=== PATIENT | female | born 1945 | race Caucasian/White ===

== ENCOUNTER 2016-07-21 07:30 | Inpatient (IN) | payer MEDICARE, OTHER ==
[2016-07-23 11:42] VITALS: BMI 32.0
--- NOTE | 2016-07-27 17:48 | HP ---
DATE OF ADMISSION: Iesha Sinha is a 71-year-old patient seen with progressive right hip pain. After having treatment options discussed, she elected to proceed with direct anterior right total hip arthroplasty. Consent regarding procedure was obtained. Medical clearance was provided by Dr. Rin Montanez's office. Past medical history is hypothyroidism, depression, hypertension. PAST SURGICAL HISTORY: 1. Carpal tunnel release. 2. Cataract surgery. 3. Wrist surgery. Daily medications: 1. Lasix. 2. Tiffin. 3. Synthroid. ALLERGIES: VIOXX, DARVON, SURGICAL TAPE. SOCIAL HISTORY: Patient denies current tobacco use. Physical evaluation of the right hip there is a limited range of motion with significant pain, diffuse tenderness about the hip girdle, diffuse weakness about the hip girdle, positive hip impingement sign. Straight-leg raise is negative. Distal neurovascular exam is intact. Radiographs of the right hip revealed moderate/severe osteoarthritic changes osteophyte formation. IMPRESSION: Symptomatic right hip osteoarthritis. PLAN: Direct anterior right total hip arthroplasty.
[2016-07-28] MEDS ORDERED: TRANEXAMIC ACID 1,000 MG in SODIUM CHLORIDE 0.9% 100 ML IVPB ONE ×4 (05:00)
[2016-07-28] MEDS ORDERED: ceFAZolin 2 GM in SODIUM CHLORIDE 0.9% 100 ML IVPB ONE (05:00)
[2016-07-28] MEDS ORDERED: ACETAMINOPHEN TAB 500 MG TAB PO ONE (05:00)
[2016-07-28] MEDS ORDERED: DEXAMETHASONE SOD PHOSPHATE 10 MG/ML 1 ML VIAL IV ONE (05:21)
[2016-07-28] MEDS ORDERED: ONDANSETRON 4 MG/2 ML VIAL IVP ONE (05:21)
[2016-07-28] MEDS ORDERED: MIDAZOLAM 2 MG/2 ML VIAL IV PRN (05:21)
[2016-07-28] MEDS ORDERED: LIDOCAINE 1% 20 ML VIAL (10MG/ML) FOR IV START INTRADERMA ONE (13:58)
[2016-07-28] MEDS: LACTATED RINGERS 1,000 ML IV SCH (13:58)
[2016-07-28 14:01] LABS: Glucose,Whole Blood 86 mg/dL (75-99)
[2016-07-28] MEDS ORDERED: ROPIVACAINE 246.25 MG, EPINEPHrine 0.5 MG, KETOROLAC 30 MG, cloNIDine HCL/PF 80 MCG, WA... MISCELLANE ONE ×5 (16:13)
[2016-07-28] MEDS ORDERED: fentaNYL (PF) 50 MCG/ML 2 ML AMP ONE (16:55)
[2016-07-28] MEDS ORDERED: PROPOFOL 10 MG/ML 20 ML VIAL IV ONE (16:55)
[2016-07-28] MEDS ORDERED: GLYCOPYRROLATE 0.2 MG/ML 2 ML VIAL ONE (16:55)
[2016-07-28] MEDS ORDERED: TRANEXAMIC ACID 1,000 MG/10 ML VIAL ONE (16:55)
[2016-07-28] MEDS ORDERED: SODIUM CHLORIDE 0.9% 100 ML BAG ONE (16:55)
[2016-07-28] MEDS ORDERED: MIDAZOLAM 2 MG/2 ML VIAL ONE (16:55)
[2016-07-28] MEDS ORDERED: ceFAZolin 3,000 MG in SODIUM CHLORIDE 0.9% IRRIGATIO 3,000 ML IRRIGATION ONE (17:37)
[2016-07-28] MEDS ORDERED: LACTATED RINGERS 1,000 ML IV ONE (17:49)
--- NOTE | 2016-07-28 19:03 | P.OP ---
Date of Procedure: 07/28/16 Preoperative Diagnosis: Right hip osteoarthritis Postoperative Diagnosis: Right hip osteoarthritis Procedure(s) Performed: Direct anterior right total hip arthroplasty Implants: 1. Depuy Corail size 11 standard with collar cementless femoral stem 2. Depuy pinnacle cementless acetabular shell size 52 3. Depuy polyethylene acetabular liner 52 OD 36 ID 4. Biolox ceramic femoral head 36 mm +1. 5 Anesthesia: local, spinal Surgeon: Sushant Arboleda Body Trimmer Upholsterer #1: Jules Foy Estimated Blood Loss (ml): 150 Pathology: other (Femoral head) Condition: stable Disposition: PACU Indications for Procedure: 71-year-old patient seen with symptomatic right hip osteoarthritis. After treatment options were discussed, she elected to proceed with right total hip arthroplasty. Operative Findings: See description of procedure Description of Procedure: The patient was taken to the operative suite. Patient underwent a spinal anesthetic by the department of anesthesia. Patient was then transferred to the [place] table. Patient was given preoperative IV antibiotics and TXA. Both lower extremities were placed in standard leg spars. The hip was then prepped and draped in the normal sterile orthopedic fashion. A standard anterior incision was made beginning 3 cm lateral and 1 cm distal to the ASIS extending 10 cm. Dissection was then carried down through the subcutaneous soft tissues down to the fascia overlying the tensor fascia ron. An incision was now made through the fascia. Careful dissection was taken down exposing the tensor fascia ron muscle. A Cobra retractor was now placed along the medial femoral neck and a second one along the lateral femoral neck. The venous circumflex vessels were now identified, cauterized and clipped. We identified the anterior hip capsule. An incision was made through the hip capsule along the lateral border. Tag sutures were then placed along the anterior capsule and lateral capsule. We then performed a capsulotomy. Retractors were now placed around the femoral neck itself. A Cobra retractor was now placed along the anterior acetabulum. Good exposure was now noted of the femoral head/neck complex. Residual labrum was debrided out. We placed the extremity into 3 turns of fine traction. We were then able to introduce a skid in between the femoral head and acetabulum. A placed a awl into the femoral head. We took 2 turns of traction off the extremity. Rotation was now released. The femoral head was then dislocated without difficulty. Additional releasing was performed of the capsule. The head was then reduced. All traction was released. A femoral neck cut was now made with a sagittal saw. It was completed with an osteotome at the lateral neck area. The femoral head was now removed without difficulty. The extremity was now rotated to 60 of external rotation. It was locked in position. Residual labrum was now debrided out. Serial reaming was performed of the acetabulum. Once we reached the appropriate size and a trial was position and fit nicely. The trial was removed and the wound was irrigated with pulse lavage mechanical irrigation. The appropriate size was now chosen opened and made available. It was introduced into the acetabulum without difficulty. The C-arm/fluoroscopy was now brought into the operative field. We made sure we had a true AP pelvic view. We now under direct C-arm/fluoroscopy introduced into the acetabular component with appropriate version and inclination. It was well seated and stable. I did insert one single screw to augment the fixation. The C-arm was pulled back. An appropriate liner was introduced and clicked into position. It was felt to be stable. At this point retractors were removed. The extremity was now placed into 120 external rotation with no traction. The leg was now dropped to the ground and adducted. Appropriate retractors were now positioned along the proximal femur. We also placed our femoral look into position. Additional capsular releasing was performed to gain access to the proximal femur. We now used a box osteotome. A canal finder was now utilized. Serial broaching was now performed until we reached the appropriate size with good overall rotational stability. Appropriate calcar planing was performed. A trial head/neck was placed into position. The hip was now reduced. The C-arm /fluoroscopy was brought back into the operative field. A spot film was obtained of the nonoperative hip. A spot film was obtained of the trial components. Overlays were performed, we noted good overall alignment and positioning for determining leg length. The C-arm/fluoroscopy was pulled back. Retractors were repositioned and the hip was dislocated. The leg was again taken down to the ground and adducted. Appropriate retractors were repositioned as well as the femoral hook. All trial components were removed. The femoral implant was opened along with the femoral head. The wound was irrigated with pulse lavage mechanical irrigation. The soft tissues were infiltrated local analgesic. The femoral implant was introduced with good purchase and fixation noted. The femoral head was introduced with good positioning and fixation noted. His was confirmed via fluoroscopy and a spot image was obtained to capture/document the positioning of the components. Retractors were now removed. The hip was now reduced. There appeared be good positioning of the hip. Bipolar cautery had been utilized intermittently through the procedure for hemostasis. The wound was irrigated copiously with pulse lavage mechanical irrigation. The fascia was repaired with Vicryl suture. The subcutaneous soft tissues were repaired in layers with Vicryl suture. The skin was approximated with pernio/Dermabond. Sterile dressings were applied. Patient was then awakened, transferred to a bed and taken to recovery in stable condition. Dimitri GIBBS assisted with the procedure.
[2016-07-28] MEDS ORDERED: HYDROmorphone 1 MG/ML 1 ML SYRINGE IVP PRN ×2 (19:04)
[2016-07-28] MEDS ORDERED: HYDROcodone/APAP 7.5-325MG 1 EACH TAB PO PRN (19:04)
[2016-07-28] MEDS ORDERED: ONDANSETRON 4 MG/2 ML VIAL IVP PRN (19:04)
[2016-07-28] MEDS ORDERED: NALOXONE 0.4 MG/ML 1 ML VIAL IV PRN (19:04)
[2016-07-28 19:34] LABS: Glucose,Whole Blood 115 mg/dL (75-99)
[2016-07-28] MEDS: HYDROmorphone 1 MG/ML 1 ML SYRINGE IVP PRN ×2 (19:39→19:47)
[2016-07-28] MEDS: hydrOXYzine PAMOATE 25 MG CAP PO PRN (21:29)
[2016-07-28] MEDS: SENNOSIDES-DOCUSATE SODIUM 1 EACH TAB PO SCH (21:29)
[2016-07-28] MEDS: HYDROcodone/APAP 7.5-325MG 1 EACH TAB PO PRN (21:29)
[2016-07-28] MEDS: SODIUM CHLORIDE 0.9% 1,000 ML IV SCH (21:30)
[2016-07-29] MEDS: traMADol 50 MG TAB PO SCH ×4 (00:05→17:53)
[2016-07-29] MEDS: HYDROmorphone 1 MG/ML 1 ML SYRINGE IVP PRN ×2 (00:05→03:46)
[2016-07-29] MEDS: ceFAZolin 2 GM in SODIUM CHLORIDE 0.9% 100 ML IVPB SCH ×2 (00:06→08:52)
[2016-07-29] MEDS: HYDROcodone/APAP 7.5-325MG 1 EACH TAB PO PRN ×3 (06:20→20:34)
[2016-07-29] MEDS: hydrOXYzine PAMOATE 25 MG CAP PO PRN ×2 (06:21→20:34)
--- NOTE | 2016-07-29 07:55 | XR ---
EXAMINATION TYPE: XR Hip Limited RT DATE OF EXAM: 07/28/2016 COMPARISON: NONE HISTORY: Postop TECHNIQUE: One view submitted. FINDINGS: There is a prosthetic hip in near anatomic alignment. There is soft tissue edema and emphysema. Tech nique limits assessment for surgical drain. IMPRESSION: 1. Surgical change appears in near-anatomic alignment.
--- NOTE | 2016-07-29 07:56 | FL ---
EXAMINATION TYPE: FL guidance operating room DATE OF EXAM: 07/28/2016 HISTORY: Fluoroscopy time 6 seconds of fluoroscopy provided. IMPRESSION: 1. Fluoroscopy time.
[2016-07-29] MEDS: ENOXAPARIN 40 MG/0.4 ML SYRINGE SQ SCH (07:58)
[2016-07-29] MEDS: FAMOTIDINE 20 MG TAB PO SCH (07:59)
[2016-07-29] MEDS: MULTIVITAMINS, THERA 1 EACH TAB PO SCH (07:59)
[2016-07-29 08:04] LABS: Basophils % (A) 0 %; CH 28.4; CHCM 32.3; Eosinophils % (A) 0 %; HCT 34.3 % (34.0-46.0); HDW 2.34; Luc # (Auto) 0.08; Luc % (Auto) 1; Lymphocytes % (A) 7 %; MCH 28.4 pg (25.0-35.0); MCHC 32.1 g/dL (31.0-37.0); MCV 88.3 fL (80.0-100.0); Mean Platelet Volume 7.5; Monocytes # (A) 0.8 k/uL (0-1.0); Monocytes % (A) 6 %; Neutrophils # (A) 11.7 k/uL (1.3-7.7); Neutrophils % (A) 86 %; RBC 3.89 m/uL (3.80-5.40); RDW 13.7 % (11.5-15.5); WBC 13.5 k/uL (3.8-10.6); WBC (Perox) 13.72
[2016-07-29] MEDS: LACTATED RINGERS 1,000 ML IV SCH (11:37)
--- NOTE | 2016-07-29 12:23 | P.PN ---
Subjective Principal diagnosis: Status post right total hip arthroplasty Patient is seen today resting in her hospital bed, she appears comfortable. Her pain is controlled with current medications. She has ambulated with therapy. She denies any lightheadedness, chest pain, shortness of breath, abdominal discomfort. Objective - Vital Signs Vital signs: Vital Signs Temp 98.9 F 07/29/16 07:00 Pulse 64 07/29/16 07:00 Resp 16 07/29/16 07:00 BP 117/54 07/29/16 07:00 Pulse Ox 95 07/29/16 07:00 Intake & Output 07/28/16 07/29/16 07/29/16 18:59 06:59 18:59 Intake Total 1601 1150 Output Total 500 200 100 Balance 1101 950 -100 Intake: IV 1601 100 Intake, IV Titration 500 Amount Sodium Chloride 0.9% 1, 500 000 ml @ 50 mls/hr IV . Q20H [facility] Rx#:[id number] Oral 550 Output: Urine 350 200 100 Uretheral (Sanders) 100 Estimated Blood Loss 150 Other: Voiding Method Indwelling Catheter - Exam Right lower extremity: Incision is clean, dry and intact. Stitches are all in good position. Minimal soft tissue swelling present around the anterior lateral aspect of the hip. Calf is soft, no tenderness with palpation. Plantar flexion, dorsiflexion, EHL , FHL are intact. Her sensory exam to light touch throughout the extremity is intact, dorsalis pedis pulses 2+. - Labs CBC & Chem 7: 07/29/16 07:00 Labs: Abnormal Lab Results - Last 24 Hours (Table) 07/28/16 07/29/16 Range/Units 19:32 07:00 WBC 13.5 H (3.8-10.6) k/uL Hgb 11.0 L (11.4-16.0) gm/dL Neutrophils # 11.7 H (1.3-7.7) k/uL POC Glucose (mg/dL) 115 H (75-99) mg/dL Assessment and Plan Plan: Assessment: 1. Postop day #1 status post right total hip arthroplasty Plan: 1. Pain control, will continue use of oral medication 2. Continue with physical therapy 3. Daily dressing changes/ice the hip 4. GI and DVT prophylaxis, continue Lovenox 5. Encourage incentive spirometer 6. Medical recommendations 7. Discharge planning: Patient will be likely discharged home tomorrow Time with Patient: Less than 30
--- NOTE | 2016-07-29 14:17 | P.CONS ---
History of Present Illness - Reason for Consult Consult date: 07/29/16 Medical management - Chief Complaint Right hip osteoarthritis - History of Present Illness This is a 71-year-old female with past medical history noted below significant for severe osteoarthritis of the right hip that was admitted to the hospital for elective total right hip arthroplasty. Patient is postoperative day #1. She tolerated the procedure well. Estimated blood loss 150 mL. She is doing fairly well today and does not have any specific concerns or complaints. I was asked to see her for medical management. Review of Systems Review of system: 14 points review of systems were obtained and were negative except to what were mentioned in the HPI. Past Medical History Past Medical History: Fibromyalgia, GERD/Reflux, Osteoarthritis (OA), Sleep Apnea/CPAP/BIPAP, Thyroid Disorder Additional Past Medical History / Comment(s): STATES FREQUENT LOWER EXTREMITY EDEMA,HIATAL HERNIA, DIVERTICULITIS,low b/p and heart rate at times,no cpap at this time,IBS,hypoglycemia History of Any Multi-Drug Resistant Organisms: None Reported Past Surgical History: Cholecystectomy, Hysterectomy, Joint Replacement, Orthopedic Surgery Additional Past Surgical History / Comment(s): ZENAIDA HAND SX, ZENAIDA INDEX FINGER WITH JEREMIAH, LEFT BIG TOE METAL, ZENAIDA CATARACTS, ZENAIDA KNEE REPLACEMENT,Laser proc rt eye Past Anesthesia/Blood Transfusion Reactions: Motion Sickness, Postoperative Nausea & Vomiting (PONV) Additional Past Anesthesia/Blood Transfusion Reaction / Comm: no hx blood transfusion Past Psychological History: Depression Smoking Status: Former smoker Past Alcohol Use History: None Reported Additional Past Alcohol Use History / Comment(s): quit smoking 2008,smoked approx 20yrs on and off <1ppd Past Drug Use History: None Reported - Past Family History Father Family Medical History: Cancer Additional Family Medical History / Comment(s): LYMPHOMA, COLON Mother Family Medical History: Cancer Additional Family Medical History / Comment(s): SKIN Medications and Allergies Home Medications Medication Instructions Recorded Confirmed Type Furosemide [Lasix] 40 mg PO DAILY PRN 01/17/14 07/28/16 History HYDROcodone/APAP 7.5-325MG [[place] 1 tab PO BID PRN 01/17/14 07/28/16 History 7.5-325] Pantoprazole Sodium [Protonix] 40 mg PO HS 01/17/14 07/28/16 History Naproxen Sodium [Aleve] 220 mg PO DAILY PRN 07/23/16 07/28/16 History tiZANidine [Zanaflex] 4 mg PO BID PRN 07/23/16 07/28/16 History traZODone HCL 200 mg PO HS 07/23/16 07/28/16 History Levothyroxine Sodium [Synthroid] 100 mcg PO DAILY 07/28/16 07/28/16 History Allergies Allergy/AdvReac Type Severity Reaction Status Date / Time adhesive Allergy Rash/Hives Verified 07/28/16 13:51 rofecoxib [From Vioxx] Allergy Rash/Hives Verified 07/28/16 13:51 Sulfa (Sulfonamide Allergy dizziness Verified 07/28/16 13:51 Antibiotics) propoxyphene HCl AdvReac Nausea & Verified 07/28/16 13:51 [From Darvon] Vomiting Physical Exam Vitals: Vital Signs Temp Pulse Resp BP Pulse Ox 07/29/16 07:00 98.9 F 64 16 117/54 95 07/29/16 01:35 97.9 F 66 16 113/54 93 L 07/28/16 20:00 97.9 F 51 L 16 143/63 100 07/28/16 19:55 55 L 16 159/66 98 07/28/16 19:40 54 L 16 152/68 98 07/28/16 19:25 54 L 16 149/75 96 07/28/16 19:10 96.8 F L 77 18 130/67 97 Intake and Output 07/28/16 07/29/16 07/29/16 22:59 06:59 14:59 Intake Total 1901 700 Output Total 500 200 100 Balance 1401 500 -100 Intake: IV 1551 Intake, IV Titration 100 400 Amount Sodium Chloride 0.9% 1, 100 400 000 ml @ 50 mls/hr IV . Q20H [facility] Rx#:[id number] Oral 250 300 Output: Urine 350 200 100 Uretheral (Sanders) 100 Estimated Blood Loss 150 Other: Voiding Method Indwelling Catheter General: The patient is awake and alert, in no distress Eye: there is normal conjunctiva bilaterally. Neck: The neck is supple, there is no JVD. Cardiovascular: Normal S1-S2, no S3-S4, no murmurs. Respiratory: Lungs clear to auscultation bilaterally Gastrointestinal: Abdomen is soft, nontender Musculoskeletal: There is no pedal edema. Neurological:. Speech is normal. Skin: Skin is warm and dry Results CBC & Chem 7: 07/29/16 07:00 Labs: Abnormal Lab Results - Last 24 Hours (Table) 07/28/16 07/29/16 Range/Units 19:32 07:00 WBC 13.5 H (3.8-10.6) k/uL Hgb 11.0 L (11.4-16.0) gm/dL Neutrophils # 11.7 H (1.3-7.7) k/uL POC Glucose (mg/dL) 115 H (75-99) mg/dL Assessment and Plan Plan: 1. Postoperative day #1 status post total right hip arthroplasty 2. DVT prophylaxis with subcu heparin per orthopedic protocol 3. Leukocytosis most likely reactive with no evidence of infection 4. Hypothyroidism maintained on Synthroid 5. Chronic insomnia Today, I reviewed her medication list lab work results. Continue current regimen. Repeat lab work in the morning. I will continue to follow up on her closely. Thank you very much for your consultation.
[2016-07-29] MEDS: LEVOTHYROXINE 100 MCG TAB PO SCH (16:52)
[2016-07-29] MEDS: SODIUM CHLORIDE 0.9% 1,000 ML IV SCH (16:52)
[2016-07-29] MEDS: PANTOPRAZOLE 40 MG TABLET PO SCH (20:19)
[2016-07-29] MEDS: SENNOSIDES-DOCUSATE SODIUM 1 EACH TAB PO SCH (20:19)
[2016-07-30] MEDS: traMADol 50 MG TAB PO SCH ×5 (00:11→21:02)
[2016-07-30] MEDS: traZODone HCL 100 MG TAB PO SCH ×2 (00:12→21:02)
[2016-07-30] MEDS: hydrOXYzine PAMOATE 25 MG CAP PO PRN ×2 (02:01→07:55)
[2016-07-30] MEDS: HYDROcodone/APAP 7.5-325MG 1 EACH TAB PO PRN ×3 (02:01→14:31)
[2016-07-30] MEDS: LEVOTHYROXINE 100 MCG TAB PO SCH (05:07)
[2016-07-30 07:31] LABS: Anion Gap 7 mmol/L; Blood Urea Nitrogen 15 mg/dL (7-17); Calcium 8.5 mg/dL (8.4-10.2); Carbon Dioxide 25 mmol/L (22-30); Chloride 106 mmol/L (98-107); Glucose 112 mg/dL (74-99); Non-African American GFR(MDRD) >60 (>60 ml/min/1.73 sqM); Potassium 4.1 mmol/L (3.5-5.1); Sodium 138 mmol/L (137-145)
[2016-07-30] MEDS: ENOXAPARIN 40 MG/0.4 ML SYRINGE SQ SCH (07:53)
[2016-07-30] MEDS: FAMOTIDINE 20 MG TAB PO SCH (07:53)
--- NOTE | 2016-07-30 10:51 | P.PN ---
Subjective Principal diagnosis: Status post right total hip arthroplasty Patient is seen today resting in her hospital bed, she appears comfortable. Patient notes increasing pain in the right hip and thigh region. She ambulated very minimally this morning. She denies any lightheadedness, chest pain, shortness of breath, abdominal discomfort. Objective - Vital Signs Vital signs: Vital Signs Temp 97.6 F 07/30/16 07:00 Pulse 79 07/30/16 07:00 Resp 17 07/30/16 07:00 BP 119/58 07/30/16 07:00 Pulse Ox 94 L 07/30/16 07:00 Intake & Output 07/29/16 07/30/16 07/30/16 18:59 06:59 18:59 Intake Total 575 240 Output Total 100 Balance -100 575 240 Intake: Intake, IV Titration 175 Amount Sodium Chloride 0.9% 1, 175 000 ml @ 50 mls/hr IV . Q20H [facility] Rx#:[id number] Oral 400 240 Output: Urine 100 Uretheral (Sanders) 100 Other: Voiding Method Toilet Toilet # Voids 3 3 - Exam Right lower extremity: Incision is clean, dry and intact. Stitches are all in good position. Minimal soft tissue swelling present around the anterior lateral aspect of the hip. Calf is soft, no tenderness with palpation. Plantar flexion, dorsiflexion, EHL , FHL are intact. Her sensory exam to light touch throughout the extremity is intact, dorsalis pedis pulses 2+. - Labs CBC & Chem 7: 07/29/16 07:00 07/30/16 06:55 Labs: Abnormal Lab Results - Last 24 Hours (Table) 07/30/16 Range/Units 06:55 Glucose 112 H (74-99) mg/dL Assessment and Plan Plan: Assessment: 1. Postop day #2 status post right total hip arthroplasty Plan: 1. Pain control, will continue use of oral medication 2. Continue with physical therapy 3. Daily dressing changes/ice the hip 4. GI and DVT prophylaxis, continue Lovenox 5. Encourage incentive spirometer 6. Medical recommendations 7. Discharge planning: Possible discharge home today, likely tomorrow Time with Patient: Less than 30
--- NOTE | 2016-07-30 10:53 | P.DS ---
Providers Date of admission: 07/28/16 13:06 Expected date of discharge: 07/31/16 Attending physician: Sushant Arboleda Consults: 07/28/16 19:04 Consult Physician Routine Consulting Provider: Liz Castillo Consult Reason/Comments: Medical management Do you want consulting provider notified?: Yes Primary care physician: Rin Montanez Hospital Course: Date of admission: 07/28/2016 Date of discharge: 07/31/2016 Admission diagnosis: Status post right total hip arthroplasty Discharge diagnosis: Same Attending physician: Dr. Arboleda Surgical procedures: Right total hip arthroplasty Brief history: Patient is a 71-year-old female with a history of progressive primary right hip osteoarthritis. At this point patient has failed conservative treatment measures and has opted to proceed with a elective right total hip arthroplasty. Hospital course: Details of patient's surgery can be found in operative report. Patient tolerated the procedure well and was subsequently transported to orthopedic floor. Patient's orthopeidc and medical care was provided daily. Patient had daily laboratory tests performed for evaluation of overall blood counts. Patient had daily physical therapy to include strengthening range of motion as well as education with walker ambulation. Patient was treated with Lovenox for their postoperative DVT prophylaxis during their inpatient stay. Patient was noted to have a relatively uneventful postoperative course. Patient reported satisfactory pain control with oral pain medications by postoperative day 0. Patient showed satisfactory progress with physical therapy. Patient moved steadily through the program and had no difficulty meeting the goals by postoperative day 3. Given patient's otherwise satisfactory course and having met physical therapy goals, plan is to discharge patient home on postoperative day 3. Discharge condition/disposition: Patient will be discharged home in stable condition. Discharge medications: Instructions are given on resumption of patient's normal daily medications per primary care recommendation, in addition patient will be prescribed [place] 7.5 mg/325 mg, Colace 100 mg, aspirin 325 mg. Discharge instructions: 1. Wound care and infection precautions, keep incision dry and covered while showering, no lotions, creams, moisturizers. No soaking, tubs, pools, hottubs. Do not scrub over the incision. 2. Weight-bear as tolerated with walker / cane until follow-up. 3. Ice and elevate when necessary. Do not exceed 20 minutes per hour with ice pack. 4. Utilize compression sleeve until seen at first follow up appointment. 5. Visiting nursing care. 6. Home physical therapy. 7. Pain meds and anticoagulants per prescription. 8. Pain medication has potential to cause constipation. Increase oral fluid and fiber intake. Contact primary care provider if you have not had a bowel movement within 48 hours after discharge 9. No anti-inflammatory medication until discussed at first post operative visit, this including Motrin, Aleve, Mobic, Diclofenac. 10. Follow up in office at 2 weeks postop with Dimitri Foy PA-C 11. Follow up with your primary care doctor 7-10 days after discharge. 12. Contact [facility] with any questions, . Procedures: Right total hip arthroplasty Patient Condition at Discharge: Good Plan - Discharge Summary New Discharge Prescriptions: New Aspirin 325 mg PO BID #60 tab Docusate [Colace] 100 mg PO DAILY #30 capsule HYDROcodone/APAP 7.5-325MG [[place] 7.5] 1 - 2 each PO Q6HR PRN #60 tab PRN Reason: Pain No Action Pantoprazole Sodium [Protonix] 40 mg PO HS Furosemide [Lasix] 40 mg PO DAILY PRN PRN Reason: Edema tiZANidine [Zanaflex] 4 mg PO BID PRN PRN Reason: Pain traZODone HCL 200 mg PO HS Levothyroxine Sodium [Synthroid] 100 mcg PO DAILY Discharge Medication List Furosemide [Lasix] 40 mg PO DAILY PRN 01/17/14 [History] Pantoprazole Sodium [Protonix] 40 mg PO HS 01/17/14 [History] tiZANidine [Zanaflex] 4 mg PO BID PRN 07/23/16 [History] traZODone HCL 200 mg PO HS 07/23/16 [History] Levothyroxine Sodium [Synthroid] 100 mcg PO DAILY 07/28/16 [History] Aspirin 325 mg PO BID #60 tab 07/31/16 [Rx] Docusate [Colace] 100 mg PO DAILY #30 capsule 07/31/16 [Rx] HYDROcodone/APAP 7.5-325MG [[place] 7.5] 1 - 2 each PO Q6HR PRN #60 tab 07/31/16 [ Rx] Follow up Appointment(s)/Referral(s): Jules Foy PAC [PHYSICIAN BLANKET FOLDER] - 08/13/16 2:30 pm Activity/Diet/Wound Care/Special Instructions: [facility] [phone] Orthopedic Discharge Instructions: 1. Wound care and infection precautions, keep incision dry and covered while showering, no lotions, creams, moisturizers. No soaking, pools, hot tubs. Do not scrub over incision. 2. Weight-bear as tolerated with walker / cane until follow-up. 3. Ice and elevate when necessary. Do not exceed 20 minutes per hour with ice pack. 4. Utilize compression sleeve until seen at first follow up appointment. 5. Visiting nursing care. 6. Home physical therapy. 7. Pain meds and anticoagulants per prescription. 8. Pain medication has potential to cause constipation. Increase oral fluid and fiber intake. Contact primary care provider if you have not had a bowel movement within 48 hours after discharge. 9. No anti-inflammatory medication until discussed at first post operative visit, this including Motrin, Aleve, Mobic, Diclofenac. 10. Follow up in office at 2 weeks postop with Dimitri Foy PA-C 11. Follow up with your primary care doctor 7-10 days after discharge. 12. Contact [facility] with any questions, . Discharge Disposition: HOME WITH HOME HEALTH SERVICES
[2016-07-30] MEDS: MULTIVITAMINS, THERA 1 EACH TAB PO SCH (14:30)
[2016-07-30 15:31] VITALS: RESP 16
--- NOTE | 2016-07-30 15:56 | P.PN ---
Subjective Patient is complaining that her pain is not well controlled today. She just requested her pain medication. No events overnight otherwise. Objective - Vital Signs Vital signs: Vital Signs Temp 98 F 07/30/16 15:00 Pulse 75 07/30/16 15:00 Resp 16 07/30/16 15:00 BP 123/67 07/30/16 15:00 Pulse Ox 98 07/30/16 15:00 Intake & Output 07/29/16 07/30/16 07/30/16 18:59 06:59 18:59 Intake Total 575 240 Output Total 100 Balance -100 575 240 Intake: Intake, IV Titration 175 Amount Sodium Chloride 0.9% 1, 175 000 ml @ 50 mls/hr IV . Q20H [facility] Rx#:[id number] Oral 400 240 Output: Urine 100 Uretheral (Sanders) 100 Other: Voiding Method Toilet Toilet # Voids 3 3 - Exam General: The patient is awake and alert, in no distress Eye: there is normal conjunctiva bilaterally. Neck: The neck is supple, there is no JVD. Cardiovascular: Normal S1-S2, no S3-S4, no murmurs. Respiratory: Lungs clear to auscultation bilaterally Gastrointestinal: Abdomen is soft, nontender Musculoskeletal: There is no pedal edema. Neurological:. Speech is normal. Skin: Skin is warm and dry - Labs CBC & Chem 7: 07/29/16 07:00 07/30/16 06:55 Labs: Abnormal Lab Results - Last 24 Hours (Table) 07/30/16 Range/Units 06:55 Glucose 112 H (74-99) mg/dL Assessment and Plan Plan: 1. Postoperative day #2 status post total right hip arthroplasty 2. DVT prophylaxis with subcu Lovenox per orthopedic protocol 3. Leukocytosis most likely reactive with no evidence of infection 4. Hypothyroidism maintained on Synthroid 5. Chronic insomnia Today, I reviewed her medication list lab work results. Continue current regimen. Repeat lab work in the morning. I will continue to follow up on her closely. Thank you very much for your consultation.
[2016-07-30] MEDS: SENNOSIDES-DOCUSATE SODIUM 1 EACH TAB PO SCH (21:02)
[2016-07-30] MEDS: PANTOPRAZOLE 40 MG TABLET PO SCH (21:02)
[2016-07-31] MEDS: HYDROcodone/APAP 7.5-325MG 1 EACH TAB PO PRN (01:38)
[2016-07-31] MEDS: LEVOTHYROXINE 100 MCG TAB PO SCH (05:51)
[2016-07-31 07:17] LABS: Basophils % (A) 0 %; CH 28.1; CHCM 30.9; Eosinophils # (A) 0.1 k/uL (0-0.7); Eosinophils % (A) 1 %; HCT 32.1 % (34.0-46.0); HDW 2.22; Hypochromasia Slight; Luc # (Auto) 0.14; Luc % (Auto) 2; Lymphocytes # (A) 1.5 k/uL (1.0-4.8); Lymphocytes % (A) 20 %; MCH 28.5 pg (25.0-35.0); MCHC 31.2 g/dL (31.0-37.0); MCV 91.3 fL (80.0-100.0); Mean Platelet Volume 7.4; Monocytes # (A) 0.5 k/uL (0-1.0); Monocytes % (A) 7 %; Neutrophils # (A) 5.3 k/uL (1.3-7.7); Neutrophils % (A) 70 %; RBC 3.51 m/uL (3.80-5.40); RDW 13.9 % (11.5-15.5); WBC 7.6 k/uL (3.8-10.6); WBC (Perox) 7.77
[2016-07-31 07:47] LABS: Anion Gap 6 mmol/L; Blood Urea Nitrogen 12 mg/dL (7-17); Calcium 8.3 mg/dL (8.4-10.2); Carbon Dioxide 26 mmol/L (22-30); Chloride 105 mmol/L (98-107); Glucose 97 mg/dL (74-99); Non-African American GFR(MDRD) >60 (>60 ml/min/1.73 sqM); Potassium 4.2 mmol/L (3.5-5.1); Sodium 137 mmol/L (137-145)
[2016-07-31] MEDS: traMADol 50 MG TAB PO SCH ×2 (08:45→12:22)
[2016-07-31] MEDS: ENOXAPARIN 40 MG/0.4 ML SYRINGE SQ SCH (08:45)
--- NOTE | 2016-07-31 10:55 | P.PN ---
Subjective Principal diagnosis: Status post right total hip arthroplasty Patient is seen today resting in her hospital bed, she appears comfortable. Patient notes an improvement in her pain at this point. She denies any lightheadedness, chest pain, shortness of breath, abdominal discomfort. Objective - Vital Signs Vital signs: Vital Signs Temp 98.7 F 07/31/16 07:00 Pulse 84 07/31/16 08:00 Resp 16 07/31/16 08:00 BP 114/63 07/31/16 07:00 Pulse Ox 92 L 07/31/16 07:00 Intake & Output 07/30/16 07/31/16 07/31/16 18:59 06:59 18:59 Intake Total 990 540 Balance 990 540 Intake: Oral 990 540 Other: Voiding Method Toilet Toilet # Voids 2 - Exam Right lower extremity: Incision is clean, dry and intact. Stitches are all in good position. Minimal soft tissue swelling present around the anterior lateral aspect of the hip. Calf is soft, no tenderness with palpation. Plantar flexion, dorsiflexion, EHL , FHL are intact. Her sensory exam to light touch throughout the extremity is intact, dorsalis pedis pulses 2+. - Labs CBC & Chem 7: 07/31/16 07:02 07/31/16 07:02 Labs: Abnormal Lab Results - Last 24 Hours (Table) 07/31/16 07/31/16 Range/Units 07:02 07:02 RBC 3.51 L (3.80-5.40) m/uL Hgb 10.0 L (11.4-16.0) gm/dL Hct 32.1 L (34.0-46.0) % Plt Count 144 L (150-450) k/uL Calcium 8.3 L (8.4-10.2) mg/dL Assessment and Plan Plan: Assessment: 1. Postop day #3 status post right total hip arthroplasty Plan: 1. Pain control, will be discharged home on oral medication 2. Continue with physical therapy 3. Daily dressing changes/ice the hip 4. GI and DVT prophylaxis, will be discharged home on aspirin 325 mg twice a day 5. Encourage incentive spirometer 6. Medical recommendations 7. Discharge planning: Will be discharged home today Time with Patient: Less than 30
[2016-07-31] MEDS: MULTIVITAMINS, THERA 1 EACH TAB PO SCH (12:23)
[2016-07-31 13:40] VITALS: TEMP 97.9
[2016-07-31 13:41] VITALS: BP 121/78; PULSE 51
== END 2016-07-31 18:28 | disposition home health service (06) | DRG 470 ==
LOC: 2ORMAIN 07-28 13:06 → 3SUR 07-28 19:37
PROVIDERS: ADMIT Orthopaedic Surgery; ATTEND Orthopaedic Surgery
PROC: 0SR904A Replacement of Right Hip Joint with Ceramic on Polyethylene Synthetic Substitute, Uncemented, Open Approach (ICD-10-PCS; principal; 2016-07-28 15:55)
DX: M16.11 Unilateral primary osteoarthritis, right hip (principal); I10 Essential (primary) hypertension; E03.9 Hypothyroidism, unspecified; G47.30 Sleep apnea, unspecified; K21.9 Gastro-esophageal reflux disease without esophagitis; M79.7 Fibromyalgia; Z80.7 Family history of other malignant neoplasms of lymphoid, hematopoietic and related tissues; Z87.891 Personal history of nicotine dependence; Z96.653 Presence of artificial knee joint, bilateral; Z88.5 Allergy status to narcotic agent; Z79.899 Other long term (current) drug therapy; Z88.2 Allergy status to sulfonamides
CPT/HCPCS: 73501; 80048; 85025; 86850; 86900; 86901; 88300

== ENCOUNTER → 2016-07-24 | Outpatient (CLI) | payer MEDICARE, OTHER ==
[2016-07-24 17:52] LABS: Basophils % (A) 0 %; CH 28.1; Eosinophils # (A) 0.1 k/uL (0-0.7); Eosinophils % (A) 1 %; HCT 43.5 % (34.0-46.0); HDW 2.26; HGB 13.6 gm/dL (11.4-16.0); Hypochromasia Slight; Luc # (Auto) 0.14; Luc % (Auto) 2; Lymphocytes # (A) 2.4 k/uL (1.0-4.8); Lymphocytes % (A) 34 %; MCH 28.4 pg (25.0-35.0); MCHC 31.2 g/dL (31.0-37.0); MCV 91.2 fL (80.0-100.0); Mean Platelet Volume 7.2; Monocytes # (A) 0.3 k/uL (0-1.0); Monocytes % (A) 4 %; Neutrophils # (A) 4.1 k/uL (1.3-7.7); Neutrophils % (A) 59 %; RBC 4.77 m/uL (3.80-5.40); RDW 14.1 % (11.5-15.5); WBC (Perox) 7.31
[2016-07-24 18:05] LABS: INR 1.1 (<1.1); Partial Thromboplastin Time 26.3 sec (22.0-30.0); Prothrombin Time 10.8 sec (9.0-12.0)
== END ==
LOC: LABPAT 16:51
PROVIDERS: ATTEND Orthopaedic Surgery
DX: Z01.812 Encounter for preprocedural laboratory examination (principal); M16.11 Unilateral primary osteoarthritis, right hip; Z51.81 Encounter for therapeutic drug level monitoring; Z79.01 Long term (current) use of anticoagulants
CPT/HCPCS: 36415; 80053; 84439; 84443; 85025; 85610; 85730; 86850; 86900; 86901; 87070

== ENCOUNTER → 2016-07-24 | Outpatient (CLI) | payer MEDICARE, OTHER ==
[2016-07-24 18:18] LABS: ALT 20 U/L (9-52); AST 19 U/L (14-36); Alkaline Phosphatase 75 U/L (38-126); Anion Gap 11 mmol/L; Blood Urea Nitrogen 15 mg/dL (7-17); Calcium 9.2 mg/dL (8.4-10.2); Carbon Dioxide 27 mmol/L (22-30); Chloride 104 mmol/L (98-107); Glucose 88 mg/dL (74-99); Non-African American GFR(MDRD) >60 (>60 ml/min/1.73 sqM); Potassium 4.3 mmol/L (3.5-5.1); Sodium 142 mmol/L (137-145); Total Bilirubin 1.2 mg/dL (0.2-1.3)
== END ==
LOC: LABWHC1 16:47
PROVIDERS: ATTEND Physician Assistant
DX: Z01.818 Encounter for other preprocedural examination (principal)
CPT/HCPCS: 36415; 80053; 84439; 84443

== ENCOUNTER → 2017-05-07 | Outpatient (CLI) | payer MEDICARE, OTHER ==
--- NOTE | 2017-05-07 16:06 | MR ---
EXAMINATION TYPE: MR lumbar spine wo con DATE OF EXAM: 05/07/2017 COMPARISON: NONE HISTORY: LBP, RLE radic since hip replacemet 07-28-16 TECHNIQUE: T1 and T2 axial and sagittal images of the lumbar spine are submitted. FINDINGS: There is no abnormal signal seen within the visualized spinal cord or paraspinal soft tissu es. At T12-L1 there is minimal left paracentral disc bulging but no focal herniation or canal stenosis. T here is facet arthropathy. At L1-2 there is facet arthropathy. No disc herniation or canal stenosis. No foraminal encroachment. At L2-3 there is circumferential disc bulging with facet arthropathy and ligamentum flavum hypertroph y. There is no canal stenosis. Neural foramina are patent. At L3-4 there is circumferential disc bulging with ligamentum flavum hypertrophy and facet arthropath y. Mild bilateral foraminal encroachment and borderline to mild canal stenosis. At L4-5 there is there is more advanced facet arthropathy with circumferential disc bulging and mild bilateral foraminal encroachment. Minimal anterolisthesis likely is degenerative. At L5-S1 there is moderate facet arthropathy. No disc herniation or canal stenosis. No foraminal encr oachment. IMPRESSION: 1. Multilevel degenerative disc disease and facet arthropathy with minimal anterolisthesis L4 on L5 r esulting in bilateral mild foraminal encroachment. 2. Disc bulging with hypertrophic changes at L3-4 results in borderline to mild canal stenosis.
== END | disposition home or self-care (01) ==
LOC: RADMRIMAIN 15:05
PROVIDERS: ATTEND Orthopaedic Surgery
DX: M51.26 Other intervertebral disc displacement, lumbar region (principal); M51.36 Other intervertebral disc degeneration, lumbar region; M47.16 Other spondylosis with myelopathy, lumbar region; M46.87 Other specified inflammatory spondylopathies, lumbosacral region
CPT/HCPCS: 72148

== ENCOUNTER → 2017-05-20 | Outpatient (CLI) | payer MEDICARE, OTHER ==
--- NOTE | 2017-05-20 17:30 | CONS ---
CONSULTATION REASON FOR CONSULTATION: Chronic insomnia/obstructive sleep apnea. This is a 72-year-old female patient who reports a very poor sleep quality. She has been dealing with chronic insomnia for many years. She has chronic fibromyalgia and degenerative arthritis. At one point, she underwent a home sleep evaluation thru [facility] and she was told to have also obstructive sleep apnea. She was given CPAP machine which she was unable to tolerate and she ultimately ended up giving machine to her who utilizes the machine quite effectively. Meanwhile condition started getting worse especially after she developed severe degenerative arthritis, and chronic pain involving the right hip and she was admitted to the hospital for right hip arthroplasty and she underwent her hip surgery back in July of 2016. Since then, she is still having extensive amount of pain with sometimes around 10/10 in severity and she has also neuropathic pain and restlessness in her lower extremities bilaterally. For this problem the patient was treated with a combination of Cobalt 10, Neurontin 100 mg at bedtime and Elavil. Whenever this combination of medications is taken, the patient is able to initiate some sleep. Yet even after falling sleep she would wake up frequently. She is not sure how many hours she is sleeping. Her sleep is very much fragmented. She goes to sleep at around 3:00 am, and she would wake up all night and ultimately she gets out of bed at around 11:00 am the next day. She is not sure if she snores and she is not sure if she quits breathing. Her sleeps in a separate room. She has restlessness in lower extremity and chronic pain and this has made her sleep in a sidewise body position with 2 pillows in her back. No history of anxiety or depression. She has heartburn for which she is under treatment. She is interested in further workup especially along the lines of sleep apneas knowing that she was given a diagnosis many years back. She was tried on trazodone 100 mg without much improvement in her sleep induction and maintenance. She is taking Protonix 40 mg for heartburn. PAST MEDICAL HISTORY: 1. Chronic insomnia. 2. Questionable obstructive sleep apnea. 3. Fibromyalgia. 4. Degenerative arthritis. 5. Acid reflux. 6. Hypothyroidism. 7. Diverticulosis. 8. Hiatal hernia. 9. Irritable bowel syndrome. SURGICAL HISTORY: Include cholecystectomy, hysterectomy, right hip replacement. Left big toe surgery, bilateral cataract surgery, laser eye surgery. SOCIAL HISTORY: The patient quit smoking in 2008. She smoked about 20 pack years, less than a pack of cigarettes a day. No history of substance abuse. No history of IV drugs. FAMILY HISTORY: Positive for lymphoma and colon cancer in her father. Mother had skin cancer. OUTPATIENT MEDICATION LIST: Includes Cobalt 7.5 or 10/325 1 tablet as needed for pain control. She is also on trazodone in the past which got discontinued, she was taking at 1.200 mg of trazodone at bedtime. She is on Synthroid 100 mcg p.o. daily and she is taking Protonix 40 mg p.o. daily, Elavil 25 mg at bedtime, Neurontin 100 mg at bedtime. ALLERGIES: ADHESIVE TAPE. SHE IS ALSO ALLERGIC TO VIOXX, SULFA AND DARVON. REVIEW OF SYSTEMS: 12-point review of system was done. Questionable snoring. No witnessed apneas. No choking or gasping at night time. Sleep fragmentation with frequent nocturnal arousals. No grinding of the teeth. No sleepwalking or sleep talking. Some restlessness in lower extremities. Bilateral along with chronic pain arthritic in nature. No palpitations. No heartburn. No sleep paralysis. No hallucinations. No cataplexy. No altered mentation. No seizure activity. No swelling in lower extremities. No falls. No substance abuse. No wounds or ulcers. PHYSICAL EXAMINATION: BP is 172/92, pulse 67, respirations 16, temperature 97.8. Saturation 98% on room air. Weight is 172, height is 5 feet 0 inches. [place] score 6. BMI 33.7, neck size 14.5 inches. GENERAL APPEARANCE: Calm, comfortable in no acute distress. Head is atraumatic, normocephalic. NECK: Supple. There is no JVD. No goiter or neck masses. LUNGS: Clear to auscultation. HEART: Sounds regular rate and rhythm. Normal S1, S2. No S3. No murmurs. ABDOMEN: Soft, nontender. No organomegaly. EXTREMITIES: No edema. No cyanosis or clubbing. Muscular exam: There is no pedal edema. No cyanosis. No pedal edema. No joint deformities. Neurologic exam is normal. Speech is normal. The patient is alert and oriented x3. There is no focal neurological deficits. Psych negative for anxiety or depression. IMPRESSION: 1. Chronic insomnia with various comorbidities contributing to her insomnia including fibromyalgia and chronic pain. 2. Question of obstructive sleep apnea. Previous evaluation was done by [facility] many years back and she was given CPAP therapy and she failed the treatment. 3. Sleep fragmentation secondary to above or a combination of above. In addition, the patient has chronic pain. In addition to that, she has some restlessness in the lower extremity with possible restless legs syndrome. A combination of the comorbidities probably is contributing to her sleep fragmentation and frequent nocturnal arousals. 4. Fibromyalgia. 5. Severe degenerative arthritis with right hip replacement and ongoing right hip pain and neuropathy. 6. Diverticulosis. 7. Hiatal hernia. Currently on Protonix. 8. Irritable bowel syndrome. 9. Hypothyroidism on thyroid hormone replacement. PLAN: I am not sure if this patient has obstructive sleep apnea. She may have a component of sleep misconception knowing that she estimates a total number of hours of sleep over 24 hours to be approximately 1 hour which is not likely. She does not take any naps during the day. She does have some limited fatigue and somnolence with an [place] score of 6. Her main complaint is her sleep fragmentation and we need to look for factors that could be contributing to this patient's sleep fragmentation. I think among these factors are fibromyalgia, chronic pain and possible obstructive sleep apnea. We will do polysomnogram to characterize her sleep quality and architecture and look at all these factors and based on that, further recommendations are to follow. Meanwhile the patient will be asked to continue the combination of Cobalt for pain control, Neurontin and Elavil 25 mg at bedtime. No need for hypnotic agents at this point in time. We will continue to follow. MMODL / IJN: [id number] /
== END | disposition home or self-care (01) ==
LOC: SLEEP 14:49
PROVIDERS: ATTEND Internal Medicine Critical Care Medicine
DX: F51.04 Psychophysiologic insomnia (principal); M79.7 Fibromyalgia; G89.29 Other chronic pain; R45.1 Restlessness and agitation; M16.11 Unilateral primary osteoarthritis, right hip; G62.9 Polyneuropathy, unspecified; K57.90 Diverticulosis of intestine, part unspecified, without perforation or abscess without bleeding; K44.9 Diaphragmatic hernia without obstruction or gangrene; K58.9 Irritable bowel syndrome, unspecified; E03.9 Hypothyroidism, unspecified; Z79.890 Hormone replacement therapy; Z79.891 Long term (current) use of opiate analgesic; Z79.899 Other long term (current) drug therapy; Z98.890 Other specified postprocedural states; Z87.891 Personal history of nicotine dependence; Z91.048 Other nonmedicinal substance allergy status; Z88.8 Allergy status to other drugs, medicaments and biological substances; Z96.641 Presence of right artificial hip joint
CPT/HCPCS: 99211

== ENCOUNTER → 2017-06-11 | Outpatient (CLI) | payer MEDICARE, OTHER ==
[2017-06-10 17:16] VITALS: BMI 31.6
[2017-06-11 12:53] VITALS: BP 145/63; PULSE 71; RESP 16
--- NOTE | 2017-06-11 13:28 | P.CONS ---
History of Present Illness - Reason for Consult Consult date: 06/11/17 - Chief Complaint Right hip and thigh pain - History of Present Illness This is a 72-year-old female with history of right total hip replacement in the anterior approach about one year ago. The patient states that since her hip surgery she started to feel pain in her right thigh with numbness on the anterior and lateral aspect of the thigh and burning like sensation. The pain is constant and it does wake the patient up at night. It also increases by weight-bearing activity however it does not go away when she rests. She denies any bowel or bladder dysfunction and she does feel weakness in her right leg that makes her walk in a wobbly fashion. She denies any weight loss recently. She takes Neurontin 300 mg twice a day. Review of Systems Ears, nose, mouth and throat: Denies as per HPI, Denies ant. neck pain, Denies bleeding gums, Denies dental pain, Denies dysphagia, Denies epistaxis, Denies headache, Denies hoarseness, Denies mouth pain, Denies nasal congestion, Denies nasal discharge, Denies neck fullness/pressure, Denies neck lump, Denies nose pain, Denies odynophagia, Denies post-nasal drip, Denies sinus pain, Denies sinus pressure, Denies swelling in mouth, Denies swelling in throat, Denies sore throat, Denies vertigo, Denies voice changes Cardiovascular: Reports decreased exercise tolerance Respiratory: Denies as per HPI, Denies congestion, Denies cough, Denies cough with sputum, Denies dyspnea, Denies excessive sputum, Denies hemoptysis, Denies home oxygen, Denies pain, Denies pain on inspiration, Denies pleurisy, Denies respiratory infections, Denies sleep apnea, Denies snoring, Denies wheezing Musculoskeletal: Reports as per HPI Neurological: Reports as per HPI Past Medical History Past Medical History: Fibromyalgia, GERD/Reflux, Osteoarthritis (OA), Sleep Apnea/CPAP/BIPAP, Thyroid Disorder Additional Past Medical History / Comment(s): pain rt anterior thigh pain with lump present,STATES FREQUENT LOWER EXTREMITY EDEMA,HIATAL HERNIA, DIVERTICULITIS ,low b/p and heart rate at times,no cpap at this time,IBS,hypoglycemia History of Any Multi-Drug Resistant Organisms: None Reported Past Surgical History: Cholecystectomy, Hysterectomy, Joint Replacement, Orthopedic Surgery Additional Past Surgical History / Comment(s): Rt hip replaced,pins placed index fingers ZENAIDA HAND, ZENAIDA INDEX FINGER WITH JEREMIAH, ORIF LEFT BIG TOE, ZENAIDA CATARACTS, ZENAIDA KNEE REPLACEMENT,Laser proc rt eye,ORIF Rt wrist Past Anesthesia/Blood Transfusion Reactions: Motion Sickness, Postoperative Nausea & Vomiting (PONV) Additional Past Anesthesia/Blood Transfusion Reaction / Comm: no hx blood transfusion Past Psychological History: Depression Smoking Status: Former smoker Past Alcohol Use History: None Reported Additional Past Alcohol Use History / Comment(s): quit smoking 2008,smoked approx 20yrs on and off <1ppd Past Drug Use History: None Reported - Past Family History Father Family Medical History: Cancer Additional Family Medical History / Comment(s): LYMPHOMA, COLON Mother Family Medical History: Cancer Additional Family Medical History / Comment(s): SKIN Medications and Allergies Home Medications Medication Instructions Recorded Confirmed Type Furosemide [Lasix] 40 mg PO DAILY PRN 01/17/14 06/11/17 History Pantoprazole Sodium [Protonix] 40 mg PO HS 01/17/14 06/11/17 History traZODone HCL 300 mg PO HS 07/23/16 06/11/17 History Levothyroxine Sodium [Synthroid] 100 mcg PO DAILY 07/28/16 06/11/17 History Docusate [Colace] 100 mg PO DAILY #30 capsule 07/31/16 06/11/17 Rx Amitriptyline HCl [Elavil] 25 mg PO HS 06/10/17 06/11/17 History Gabapentin 600 mg PO HS 06/10/17 06/11/17 History Gabapentin [Neurontin] 300 mg PO 1100 06/10/17 06/11/17 History Allergies Allergy/AdvReac Type Severity Reaction Status Date / Time adhesive Allergy Rash/Hives Verified 06/11/17 12:39 rofecoxib [From Vioxx] Allergy Rash/Hives Verified 06/11/17 12:39 Sulfa (Sulfonamide Allergy dizziness Verified 06/11/17 12:39 Antibiotics) propoxyphene HCl AdvReac Nausea & Verified 06/11/17 12:39 [From Darvon] Vomiting Physical Exam Vitals: Vital Signs Pulse Resp BP Pulse Ox 06/11/17 12:41 71 16 145/63 98 Intake and Output 06/10/17 06/11/17 06/11/17 22:59 06:59 14:59 Other: Weight 77.111 kg - Constitutional General appearance: morbidly obese - EENT Eyes: PERRLA - Respiratory Respiratory: bilateral: CTA - Cardiovascular Rhythm: regular - Neurologic Neurologic: CNII-XII intact - Psychiatric Psychiatric: A&O x's 3, appropriate affect, intact judgment & insight Neuro exam of the lower extremities showed decreased right hip flexion and the rest of the muscle strength exam is within normal limits. She has symmetrical knee reflexes bilaterally and absent ankle reflexes bilaterally. Internal and external rotation of the right hip joint did not elicit pain and she has very mild tenderness in the lumbar paravertebral area. She has well-healed scar on the anterior aspect of her groin from her right total hip replacement in the anterior approach. There is tenderness in the right quadratus muscle, there is lumpy feeling around her incision. Assessment and Plan Plan: This is a 72-year-old female with right hip and thigh pain status post total hip replacement in the anterior approach about one year ago. The patient's MRI showed degenerative disc disease and mild neural foraminal stenosis at the L3 4 and L4 5 levels and facet arthropathy. She failed to respond to the bursa injection by her orthopedic surgeon. Differential diagnosis for her pain includes: Right lumbar radiculopathy in the L3 4 level Right meralgia paresthetica Myofascial pain I will send the patient to have an EMG and nerve conduction test on the right lower extremity to rule out meralgia paresthetica and delineate the level of lumbar Radiculopathy. We will see her in 4 weeks from now after she gets that test done and then we will discuss other options. I thank you for the consultation
== END | disposition home or self-care (01) ==
LOC: PNWHC3 12:30
PROVIDERS: ATTEND Anesthesiology
DX: M25.551 Pain in right hip (principal); Z96.641 Presence of right artificial hip joint; Z91.048 Other nonmedicinal substance allergy status; Z88.8 Allergy status to other drugs, medicaments and biological substances; Z88.2 Allergy status to sulfonamides; Z79.899 Other long term (current) drug therapy; Z87.891 Personal history of nicotine dependence
CPT/HCPCS: 99211

== ENCOUNTER → 2017-07-01 | Outpatient (CLI) | payer MEDICARE, OTHER ==
[2017-07-01 12:14] VITALS: BP 177/79; PULSE 70; RESP 18
--- NOTE | 2017-07-01 12:29 | P.PN ---
Progress Note - Text Progress Note Date: 07/01/17 Patient returns for followup for chronic RLE pain with radiation to anterior and lateral thigh. Patient recently underwent VALERIA last year and now has persistent pain in RLE; EMG results below. Patient denies adverse drug effects from medications. Today, pt denies new-onset weakness, bowel/bladder incontinence, or any other signs or symptoms of cauda equina syndrome. There are no signs of acute intoxication, and no indications of medication diversion or overuse. In addition to above, 13-point review of systems is also negative for chest pain , shortness of breath, changes in vision, changes in hearing, new onset weakness , abdominal pain, diarrhea, extreme fatigue, malaise, fever, skin changes, homicidal or suicidal ideation, or bowel or bladder incontinence. Vital Signs: Reviewed in EMR Gen: WDWN, AAOx3, NAD HEENT: NCAT, EOMI, hearing grossly normal Pulm: resp unlabored Abd: soft, NT, ND Lower extremity: decreased sensation right anterior and lateral thigh to pinprick Imaging: Reviewed in EMR Assessment: 1. meralgia paresthetica 2. painful VALERIA 3. chronic pain syndrome Plan: 1. Explanation: Opioid and psychological risk scores were reviewed. Diagnoses , prognoses, and multiple treatment options including but not limited to physical therapy, interventional therapies, adjuvant medical therapies, narcotic medication therapies, and surgery were discussed with the patient and all questions were answered to the patient's satisfaction. 2. Opioid agreement: no opioids prescribed today 3. Counseling: The patient was counseled extensively on BODY MASS INDEX, EXERCISE. Specifically, the patient was instructed regarding the importance of weight control, and exercise in the context of both chronic pain and overall health. 4. Procedures: R lateral femoral cutaneous NB with ultrasound 5. Consultations: None 6. Investigations: UDS not done, MAPS queried and appropriate 7. Medications: none 8. Morphine equivalents per day prescribed: zero 9. Disposition: f/u for procedure as scheduled PQRS measures: 1-Patient's medications are documented in the chart. 2-Tobacco use is negative 3-Patient has not had a pneumococcal vaccine. 4-Advanced care planning discussed, patient unable to give. 5-Opioid contract NOT signed with the patient. 6-Pain positive, follow-up visit or procedure scheduled 7-Patient's blood pressure measured and documented, and patient will follow up with the primary care due to hypertension. 8-Patient's weight was measured, and body mass index ABOVE the normal limits, and counseling was done. Patient instructed to follow up with PCP. 9-Patient WAS NOT identified as an unhealthy alcohol user.
== END | disposition home or self-care (01) ==
LOC: PNWHC3 11:57
PROVIDERS: ATTEND Anesthesiology
DX: G89.4 Chronic pain syndrome (principal); M79.604 Pain in right leg; G57.10 Meralgia paresthetica, unspecified lower limb; T84.84XA Pain due to internal orthopedic prosthetic devices, implants and grafts, initial encounter
CPT/HCPCS: 99211

== ENCOUNTER 2017-07-06 07:50 | Day surgery (SDC) | payer MEDICARE, OTHER ==
[2017-07-02 16:03] VITALS: BMI 33.2
[2017-07-06] MEDS ORDERED: LACTATED RINGERS 1,000 ML IV ONE (08:18)
[2017-07-06 08:21] VITALS: RESP 16; TEMP 97.5
[2017-07-06 08:23] LABS: Glucose,Whole Blood 77 mg/dL (75-99)
--- NOTE | 2017-07-06 08:49 | P.PCN ---
Date of Procedure: 07/06/17 Anesthesia: local Surgeon: Karsten Moncada Description of Procedure: PREOPERATIVE DIAGNOSIS: 1-right meralgia paresthetica POSTOPERATIVE DIAGNOSIS: Same PROCEDURE Right lateral femoral cutaneous nerve block ANESTHESIA: Local with 1% lidocaine g EBL: Minimal PROCEDURE INDICATION: This is a very pleasant 72-year-old woman with a history of intractable right lateral and anterior thigh pain after right hip replacement. Recent evaluations demonstrate that this could be meralgia paresthetica. We will proceed with injection therapy to hopefully help relieve the symptoms. PROCEDURE DESCRIPTION / TECHNIQUE: The patient was seen and identified in the preoperative area. Risks, benefits , complications including but not limited to infections ,bleeding ,allergic reaction to the medications ,nerve damage and not complete pain relief , and alternatives were discussed with the patient. The patient agreed to proceed with the procedure and signed the consent. It was positioned in the supine position. The area over the right anterior superior iliac spine was prepped and draped in usual sterile fashion. A spinal needle was then introduced through the skin and and subcutaneous tissue and, after negative aspiration, a combination of 4 mL of 0.5% bupivacaine with 40 mg of Kenalog was injected in a fanlike distribution. The needle was then withdrawn intact and a sterile bandage was applied. COMPLICATIONS: None DISPOSITION / PLANS: The patient was placed in a supine position and transferred to the recovery area in a stable condition for observation. There was no evidence of lower extremity motor or sensory deficit after the procedure. Patient was discharged from the recovery room after meeting discharge criteria. Home discharge instructions were given to the patient by the staff. The patient was reexamined prior to discharge. The patient will schedule a follow up for repeat of this procedure in 2-4 weeks.
[2017-07-06] MEDS ORDERED: IV FLUID CONTINUATION 1,000 ML IV ONE (09:01)
[2017-07-06 09:17] VITALS: BP 167/84; PULSE 51
== END 2017-07-06 09:31 | disposition home or self-care (01) ==
LOC: ORPAIN 07:50
PROVIDERS: ATTEND Pain Medicine Pain Medicine
DX: G57.11 Meralgia paresthetica, right lower limb (principal); T84.84XA Pain due to internal orthopedic prosthetic devices, implants and grafts, initial encounter; Z96.641 Presence of right artificial hip joint; G89.4 Chronic pain syndrome; M51.36 Other intervertebral disc degeneration, lumbar region; M48.061 Spinal stenosis, lumbar region without neurogenic claudication; M79.7 Fibromyalgia; K21.9 Gastro-esophageal reflux disease without esophagitis; M19.90 Unspecified osteoarthritis, unspecified site; G47.30 Sleep apnea, unspecified; E07.9 Disorder of thyroid, unspecified; K58.9 Irritable bowel syndrome, unspecified; E16.2 Hypoglycemia, unspecified; F32.9 Major depressive disorder, single episode, unspecified; Z79.890 Hormone replacement therapy; Z79.899 Other long term (current) drug therapy; Z88.6 Allergy status to analgesic agent; Z88.2 Allergy status to sulfonamides; Z91.048 Other nonmedicinal substance allergy status; Z88.8 Allergy status to other drugs, medicaments and biological substances; Z87.891 Personal history of nicotine dependence
CPT/HCPCS: 64447; J3301

== ENCOUNTER 2017-07-29 06:50 | Day surgery (SDC) | payer MEDICARE, OTHER ==
[2017-07-24 14:03] VITALS: BMI 33.2
[2017-07-29 07:03] VITALS: TEMP 97.2
[2017-07-29] MEDS ORDERED: LACTATED RINGERS 1,000 ML IV SCH (07:15)
[2017-07-29] MEDS ORDERED: IV FLUID CONTINUATION 1,000 ML IV ONE (08:30)
[2017-07-29 08:33] VITALS: RESP 18
[2017-07-29 08:35] VITALS: BP 150/74; PULSE 58
--- NOTE | 2017-07-29 09:08 | P.PCN ---
Date of Procedure: 07/29/17 Surgeon: Antony Rodriguez Pathology: none sent Condition: stable Disposition: PACU Description of Procedure: PREOPERATIVE DIAGNOSIS: 1-right meralgia paresthetica POSTOPERATIVE DIAGNOSIS: Same PROCEDURE: Right lateral femoral cutaneous nerve block with ultrasound guidance ANESTHESIA: Local with 1% lidocaine; sedation with Versed 2 mg EBL: Minimal PROCEDURE INDICATION: This is a very pleasant 72-year-old woman with a history of intractable right lateral and anterior thigh pain after right hip replacement. Good relief for two weeks from first right-sided LFCN block, will proceed with #2 today. No use of blood thinners. PROCEDURE DESCRIPTION / TECHNIQUE: The patient was seen and identified in the preoperative area. Risks, benefits, possible complications (including but not limited to infections, bleeding, allergic reaction to medications, nerve damage and incomplete pain relief), and alternatives were discussed with the patient. The patient agreed to proceed with the procedure and signed the informed consent after all questions were answered. After timeout to confirm correct patient, laterality, procedure, and allergies, patient was positioned in the supine position and given conscious sedation for relaxation. The area over the right anterior superior iliac spine was prepped and draped in usual sterile fashion, and an ultrasound with sterile cover was placed over the right ASIS. After localization with 1% lidocaine, a 21-gauge 2- inch ultrasound needle was introduced through the skin and and subcutaneous tissue and directed to the convergence of the tensor fascia latae muscle and the sartorius. After negative aspiration, a combination of 6 mL of 0.5% bupivacaine with 40 mg of Kenalog was injected in a fanlike distribution. The needle was then withdrawn intact and a sterile bandage was applied. COMPLICATIONS: None DISPOSITION / PLANS: The patient was placed in a supine position and transferred to the recovery area in a stable condition for observation. There was no evidence of lower extremity motor or sensory deficit after the procedure. Patient was discharged from the recovery room after meeting discharge criteria. Home discharge instructions were given to the patient by the staff. The patient was reexamined prior to discharge and she had good pain relief. The patient will schedule a follow up in clinic in 2-4 weeks for further evaluation.
== END 2017-07-29 08:36 | disposition home or self-care (01) ==
LOC: ORPAIN 06:50
PROVIDERS: ATTEND Anesthesiology
DX: G89.4 Chronic pain syndrome (principal); G57.11 Meralgia paresthetica, right lower limb; Z88.6 Allergy status to analgesic agent; Z91.09 Other allergy status, other than to drugs and biological substances
CPT/HCPCS: 64447; J2250; J3301; 99152

== ENCOUNTER → 2017-08-24 | Outpatient (CLI) | payer MEDICARE, OTHER ==
[2017-08-24 14:28] VITALS: BP 151/63; PULSE 59; RESP 16
--- NOTE | 2017-08-24 15:08 | P.PN ---
Subjective Progress Note Date: 08/24/17 This is a 72-year-old female with history of right hip surgery and pain in the right lateral thigh area. The patient had right lateral femoral cutaneous nerve block twice but she received with the results with the first injection that she had. The results after the first injection lasted for 3 weeks. She has severe insomnia at night and she uses trazodone 300 mg and Neurontin 600 mg at night she also uses 100 mg of Neurontin during the day. Today, pt denies new-onset weakness, bowel/bladder incontinence, or any other signs or symptoms of cauda equina syndrome. There are no signs of acute intoxication, and no indications of medication diversion or overuse. In addition to above, 13-point review of systems is also negative for chest pain , shortness of breath, changes in vision, changes in hearing, new onset weakness , abdominal pain, diarrhea, extreme fatigue, malaise, fever, skin changes, homicidal or suicidal ideation, or bowel or bladder incontinence. 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 Explanation: Opioid and psychological risk scores were reviewed. Diagnoses , prognoses, and multiple treatment options including but not limited to physical therapy, interventional therapies, adjuvant medical therapies, narcotic medication therapies, and surgery were discussed with the patient and all questions were answered to the patient's satisfaction. 2. Opioid agreement: Signed with the patient and the patient is warned not to use opioids while driving or before driving and not to combine opioids with benzodiazepines or alcohol. 3. Counseling: The patient was counseled extensively on SMOKING CESSATION, BODY MASS INDEX, EXERCISE. Specifically, the patient was instructed regarding the importance of smoking cessation, obesity, and exercise in the context of both chronic pain and overall health. 4. Procedures: Repeat the lateral femoral exam is nerve block 5. Consultations: None 6. Investigations: None 7. Medications: None prescribed 8. Disposition: Return for the above-mentioned procedure to be done Objective - Vital Signs Vital signs: Vital Signs Temp Pulse 59 L 08/24/17 14:22 Resp 16 08/24/17 14:22 BP 151/63 08/24/17 14:22 Pulse Ox Intake & Output 08/23/17 08/24/17 08/24/17 18:59 06:59 18:59 Weight 78.018 kg
== END ==
LOC: PNWHC3 14:02
PROVIDERS: ATTEND Anesthesiology
DX: G58.8 Other specified mononeuropathies (principal); M16.0 Bilateral primary osteoarthritis of hip; M48.00 Spinal stenosis, site unspecified; Z79.899 Other long term (current) drug therapy
CPT/HCPCS: 99211

== ENCOUNTER 2017-08-27 08:48 | Day surgery (SDC) | payer MEDICARE, OTHER ==
[2017-08-26 08:33] VITALS: BMI 33.2
[~2017-08-27 08:48] MED LIST: LACTATED RINGERS 1,000 ML IV SCH
[2017-08-27 09:14] VITALS: RESP 16; TEMP 97.7
[2017-08-27] MEDS ORDERED: LIDOCAINE 1% 20 ML VIAL (10MG/ML) FOR IV START INTRADERMA ONE (09:20)
--- NOTE | 2017-08-27 10:05 | P.PCN ---
Date of Procedure: 08/27/17 Procedure(s) Performed: Description of Procedure: PREOPERATIVE DIAGNOSIS: 1-right meralgia paresthetica. POSTOPERATIVE DIAGNOSIS: Same PROCEDURE: Right lateral femoral cutaneous nerve block with ultrasound guidance ANESTHESIA: Local with 1% lidocaine; sedation with Versed 2 mg EBL: Minimal PROCEDURE INDICATION: This is a very pleasant 72-year-old woman with a history of intractable right lateral and anterior thigh pain after right hip replacement. Good relief for two weeks from first right-sided LFCN block, will proceed with #2 today. No use of blood thinners. PROCEDURE DESCRIPTION / TECHNIQUE: The patient was seen and identified in the preoperative area. Risks, benefits, possible complications (including but not limited to infections, bleeding, allergic reaction to medications, nerve damage and incomplete pain relief), and alternatives were discussed with the patient. The patient agreed to proceed with the procedure and signed the informed consent after all questions were answered. After timeout to confirm correct patient, laterality, procedure, and allergies, patient was positioned in the supine position and given conscious sedation for relaxation. The area over the right anterior superior iliac spine was prepped and draped in usual sterile fashion, and an ultrasound with sterile cover was placed over the right ASIS. After localization with 1% lidocaine, a 21-gauge 2- inch ultrasound needle was introduced through the skin and and subcutaneous tissue and directed to the convergence of the tensor fascia latae muscle and the sartorius. After negative aspiration, a combination of 10 mL of 0.5% Ropivacaine with 40 mg of Kenalog was injected in a fanlike distribution. The needle was then withdrawn intact and a sterile bandage was applied. COMPLICATIONS: None DISPOSITION / PLANS: The patient was placed in a supine position and transferred to the recovery area in a stable condition for observation. There was no evidence of lower extremity motor or sensory deficit after the procedure. Patient was discharged from the recovery room after meeting discharge criteria. Home discharge instructions were given to the patient by the staff. The patient was reexamined prior to discharge and she had good pain relief. The patient will schedule a follow up in clinic in 2-4 weeks for further evaluation.
[2017-08-27] MEDS ORDERED: IV FLUID CONTINUATION 1,000 ML IV ONE (10:16)
[2017-08-27 10:34] VITALS: BP 144/68; PULSE 59
== END 2017-08-27 11:10 | disposition home or self-care (01) ==
LOC: ORPAIN 08:48
PROVIDERS: ATTEND Specialist
DX: G57.11 Meralgia paresthetica, right lower limb (principal); I10 Essential (primary) hypertension; E03.9 Hypothyroidism, unspecified; Z88.5 Allergy status to narcotic agent; Z88.2 Allergy status to sulfonamides; Z88.8 Allergy status to other drugs, medicaments and biological substances; Z91.09 Other allergy status, other than to drugs and biological substances
CPT/HCPCS: 64447; 64450; J2250; J3301; 99152

== ENCOUNTER → 2017-10-01 | Outpatient (CLI) | payer MEDICARE, OTHER ==
[2017-10-01 13:20] VITALS: BP 147/73; PULSE 72; RESP 16
--- NOTE | 2017-10-02 10:40 | P.PN ---
Subjective Progress Note Date: 10/01/17 This is follow-up visit for this patient with a history of severe right lateral femoral cutaneous nerve neuralgia, We have done an interventional pain procedure right side lateral femoral cutaneous nerve block,x3 , she reported that she had a good result after each block she gets more than 70% improvement in the pain and numbness The patient currently on Neurontin Patient denies any side effect of the medication , patient denies any excessive drowsiness or sleepiness, patient denies any suicidal ideation, Objective - Vital Signs Vital signs: Vital Signs Temp Pulse 72 10/01/17 13:08 Resp 16 10/01/17 13:08 BP 147/73 10/01/17 13:08 Pulse Ox Intake & Output 10/01/17 10/02/17 10/02/17 18:59 06:59 18:59 Weight 77.111 kg - Exam Physical Examinations : 1-Constitutiona : Cooperative , not in acute distress . 2-HEENT : nech ; supple , no Lymphadenopathy , normal thyroid size . eyes : no ptosis , no icterus , no photophobia . ENT : normal of hearing , normal oropharynx , no Thrush . 3- Respiratory : Chest clear to auscultations Bilaterally , no wheezing , no Rhonchi . 4- Cardiovascular : regular rate and rhythem , S1 , S2 , no S3 , no S4. 5- Gastrointestinal : abdomen soft no tenderness , bowel sounds , no organomegally . 6- Genitourinary : Defferred . 7- neurologic : Cranial nerve II to XII intact , no focal neurological deffecit . 8-psychatric : alert , oriented X 3 , appropriate affect , intact judgment and insight . 9-Lymphatic : no Lymphadenopathy . 10- musculoskeltal : Lumber spine moter stegnth lower extremities ,thigh and legs 5/5 Right side , 5/5 Left side deep tendon reflexes : normal Knee Jerk , normal ankle Jerk lumber facet Loading Test ,positive on the right side Range of motion of the lumbar spine Flexion 60 degrees, extension 30 degrees strait leg raising test negative bilaterally Fabere test negative bilaterally. Allodynia ,and dysesthesia , in the anterior aspect of the right Thigh - Constitutional Constitutional Comment(s): EMG= no evidence of radiculopathy. MRI of the lumbar spine= lumbar degenerative disc disease and lumbar facet arthropathy Assessment and Plan Plan: Assessment and plan= right side lateral femoral cutaneous nerve neuralgia , she had resolved after the right side and lateral femoral continuous nerve block The pain relief lasted only for a few weeks after each injection. He will be good candidate to have radiofrequency ( Pulse ) of the lateral femoral cutaneous nerve Time with Patient: Less than 30
== END | disposition home or self-care (01) ==
LOC: PNWHC3 12:52
PROVIDERS: ATTEND Specialist
DX: M79.2 Neuralgia and neuritis, unspecified (principal); Z79.891 Long term (current) use of opiate analgesic
CPT/HCPCS: 99211

== ENCOUNTER 2017-10-22 09:45 | Day surgery (SDC) | payer MEDICARE, OTHER ==
[2017-10-15 15:54] VITALS: BMI 33.2
[2017-10-22] MEDS ORDERED: LIDOCAINE 1% 20 ML VIAL (10MG/ML) FOR IV START INTRADERMA ONE (10:23)
[2017-10-22 10:34] VITALS: TEMP 97.7
[2017-10-22 10:47] LABS: Glucose,Whole Blood 80 mg/dL (75-99)
--- NOTE | 2017-10-22 11:54 | P.PCN ---
Date of Procedure: 10/22/17 Procedure(s) Performed: Preoperative diagnoses= 1 Lateral femoral cutaneous nerve entrapment Postoperative diagnoses= same as preoperative diagnosis. Procedure= Lateral Femoral Cutaneous nerve Pulsed Radio Frequency Ablation with ultrasound guidance. Anesthesia= conscious sedation with Versed 2 mg and fentanyl 100 micrograms and local infiltration with lidocaine 1% 5 ml Estimated blood loss=minimal. Procedure indication= the patient had a history of severe chronic Groin pain, diagnosed with LFCN entrapment , unresponsive to conservative treatment and did very well with nerve block. Procedure description= the patient was seen and identified in the preoperative holding area, risks and benefits and alternative of the procedure and possible complications discussed with the patient, and he agreed with the preceding, patient signed the consent, an IV was started, and vital signs were monitored and were stable throughout the procedure, patient was placed in the supine position on the stretcher and the groin and lower abdomen area was prepped, and draped with a sterile fashion, vital signs were closely monitored during the procedure, the linear ultrasound probe was placed in the medial and inferior to the ASIS, ,the sartorious muscle and Tenssor fascia ron muscle were identified along with the LFCN , local infiltration of the skin and subcutaneous tissue with lidocaine 1% 2 mL then a 20 -gauge 2 inches ultrasound needle advanced slowly with continous visualizations of the needle tip , and needle was in close proxemity of the nerve , and after appropriate needle placement confirmed withe ultrasound , sensory stimulation was conducted at 1v and the patient had sensation of tingling in the nerve distribution, the motor stimulation was negative. After confirming position, we did pulsed radio frequency ablation at 42 degree for 120seconds for the first burn and repeated again after turning the needed 180 degrees after checking for motor stimulation before lesioning Then the skin was cleaned and a Band-Aid applied, the patient transported to recovery room in stable condition and he was monitored for 30 minutes before he was discharged home and then patient was reexamined before going home and patient was discharged in stable condition and patient will follow up with the pain clinic in a few weeks
[2017-10-22] MEDS ORDERED: IV FLUID CONTINUATION 1,000 ML IV ONE (11:59)
[2017-10-22 12:05] VITALS: PULSE 59
[2017-10-22 12:21] VITALS: BP 142/72; RESP 16
== END 2017-10-22 12:34 | disposition home or self-care (01) ==
LOC: ORPAIN 09:45
PROVIDERS: ATTEND Hospitalist
DX: G89.29 Other chronic pain (principal); G58.8 Other specified mononeuropathies; M51.36 Other intervertebral disc degeneration, lumbar region; M46.96 Unspecified inflammatory spondylopathy, lumbar region; Z91.048 Other nonmedicinal substance allergy status
CPT/HCPCS: 64999; 76942; J2250; J3010; 99152; 99153

== ENCOUNTER → 2017-11-26 | Outpatient (CLI) | payer MEDICARE, OTHER ==
[2017-11-26 13:09] VITALS: BP 170/91; PULSE 61; RESP 16
--- NOTE | 2017-11-27 19:46 | P.PAINPG ---
Subjective Progress Note Date: 11/26/17 This is follow-up visit for this patient with a history of severe right lateral femoral cutaneous nerve neuralgia, We have done an interventional pain procedure right side puls Radiofrequency of lateral femoral cutaneous nerve block, , she reported that she continued to have severe low back pain, and right lower extremity numbness, aching pain in the anterior lateral aspect of the right leg (above the knee area ) she denies any motor or sensory deficit, intensity of the pain interfering with the quality of life, she denies any fever or night sweats The patient currently on Neurontin 300 mg every morning and 600 mg daily at bedtime, Elavil 25 mg daily at bedtime Patient denies any side effect of the medication , patient denies any excessive drowsiness or sleepiness, patient denies any suicidal ideation, - Exam Physical Examinations : 1-Constitutiona : Cooperative , not in acute distress . 2-HEENT : nech ; supple , no Lymphadenopathy , normal thyroid size . eyes : no ptosis , no icterus , no photophobia . ENT : normal of hearing , normal oropharynx , no Thrush . 3- Respiratory : Chest clear to auscultations Bilaterally , no wheezing , no Rhonchi . 4- Cardiovascular : regular rate and rhythem , S1 , S2 , no S3 , no S4. 5- Gastrointestinal : abdomen soft no tenderness , bowel sounds , no organomegally . 6- Genitourinary : Defferred . 7- neurologic : Cranial nerve II to XII intact , no focal neurological deffecit . 8-psychatric : alert , oriented X 3 , appropriate affect , intact judgment and insight . 9-Lymphatic : no Lymphadenopathy . 10- musculoskeltal : Lumber spine moter stegnth lower extremities ,thigh and legs 5/5 Right side , 5/5 Left side deep tendon reflexes : normal Knee Jerk , normal ankle Jerk lumber facet Loading Test ,positive on the right side Range of motion of the lumbar spine Flexion 60 degrees, extension 30 degrees strait leg raising test negative bilaterally Fabere test negative bilaterally. Allodynia ,and dysesthesia , in the anterior aspect of the right Thigh Severe tenderness over the right sacroiliac joint. Severe tenderness over the right trochanteric bursa. EMG= no evidence of radiculopathy. MRI of the lumbar spine= lumbar degenerative disc disease and lumbar facet arthropathy Assessment and plan= right side lateral femoral cutaneous nerve neuralgia. Right sacroiliitis. Right trochanteric bursitis. Patient continued to have severe pain after pulsed RF of the right lateral femoral cutaneous nerve , Patient could benefit from right-sided sacroiliac joint steroid injection at the same time we'll do a right trochanteric bursa steroid injection Procedure risk and benefits and alternatives discussed with the patient she agreed with the preceding Time with Patient: Less than 30 Additional CC's: Objective - Vital Signs Vital signs: Vital Signs Temp Pulse 61 11/26/17 13:00 Resp 16 11/26/17 13:00 BP 170/91 11/26/17 13:00 Pulse Ox 98 11/26/17 13:00 PQRS Measure Charge Sheet Measure #130: Documentation of Current Meds in Medical Chart: Patient's medications documented in chart Measure #226: Tobacco Use: Screen & Cessation Intervention: Pt not a tobacco user Measure #111: Pneumonia Vaccination: Pneumococcal vaccine administered or previously received Measure #47: Advance Care Plan: Advance care planning discussed & documented, pt chose/unable to give Measure #412: Opioid Treatment Agreement: No documentation of signed opioid treatment agreement Measure #408: Opioid Therapy Follow-up Evaluation: Patient had NO f/u eval minimum every 3 months during opioid therapy Measure #317: Preventitive Care & Scrn High Bld Press & F/U: Pre-hypertensive or hypertensive BP documented, pt will f/u with PCP Measure #128: Body Mass Index (BMI) Screening & Follow-up: BMI documented ABOVE normal parameters - f/u documented Measure #131: Pain Assessment & Follow-up: Pain positive & plan documented, Follow-up scheduled Measure #431: Unhealthy Alcohol Use Preventative Care & Scrn: Patient not identified as an unhealthy alcohol user PQRS Narrative: Smoking Status Former smoker Do You Want the Pneumonia Yes Vaccine AT THIS TIME? Blood Pressure 170/91 Pain Intensity [Right Anterior 6 Hip] Scale Used Numeric (1 - 10) Home Medications: Ambulatory Orders Furosemide [Lasix] 40 mg PO DAILY PRN 01/17/14 Pantoprazole Sodium [Protonix] 40 mg PO HS 01/17/14 traZODone HCL 150 mg PO HS 07/23/16 Levothyroxine Sodium [Synthroid] 100 mcg PO DAILY 07/28/16 Docusate [Colace] 100 mg PO DAILY #30 capsule 07/31/16 Amitriptyline HCl [Elavil] 25 mg PO HS 06/10/17 Gabapentin 600 mg PO HS 06/10/17 Gabapentin [Neurontin] 300 mg PO 1100 06/10/17 Metoprolol Succinate (ER) [Toprol XL] 12.5 mg PO DAILY 08/24/17 Liothyronine Sodium [Cytomel] 5 mcg PO HS 10/15/17 Liothyronine Sodium [Cytomel] 10 mcg PO PC-LUNCH 10/15/17 Controlled Substance Measures - Controlled Substance Measures Is patient prescribed a controlled substance at discharge?: Yes When asked, does pt state using other controlled substances?: No If Rx opioid, was Start Talking consent form obtained?: Yes If opioid is for acute pain is fill amount 7 days or less?: No Was information provided regarding opioid addiction?: Yes
== END | disposition home or self-care (01) ==
LOC: PNWHC3 12:39
PROVIDERS: ATTEND Specialist
DX: G57.21 Lesion of femoral nerve, right lower limb (principal); M46.1 Sacroiliitis, not elsewhere classified; M70.61 Trochanteric bursitis, right hip; Z87.891 Personal history of nicotine dependence; Z79.899 Other long term (current) drug therapy
CPT/HCPCS: 99211

== ENCOUNTER → 2017-12-15 | Day surgery (SDC) | payer MEDICARE, OTHER ==
[2017-12-09 16:03] VITALS: BMI 32.4
[2017-12-15 07:44] VITALS: RESP 18; TEMP 97.9
--- NOTE | 2017-12-15 08:47 | P.PCN ---
Date of Procedure: 12/15/17 Procedure(s) Performed: Procedure= 1-Right sacral iliac joints steroid injection under fluoroscopy guidance . 2-right trochanter bursa steroid injection under fluoroscopy guidance Preoperative diagnosis= 1-right sacroiliitis 2-right trochanter bursitis Postoperative diagnosis= same as preop diagnosis . Complication = none Condition= stable Anesthesia= moderate sedation with intravenous Versed 1 mg , and fentanyl 100 micrograms and local infiltration with lidocaine 1% 4 mL Indication for the procedure= patient complaining of low back pain , examination was positive for severe tenderness over the sacroiliac joints bilaterally and patient diagnosed with sacroiliitis, for this reason he/ she was good candidate for sacroiliac joint steroid injection. Description of the procedure= procedure risk and benefits discussed with the patient, including but not limited, risk of infection and bleeding, and ALLERGIC reaction to the medication and not complete pain relief and patient agreed with the preceding patient taken to the operating room, placed in prone position or standard monitors applied to the patient then after induction of anesthesia back prepped with chlorhexidine 3 times , Then under strict sterile technique, first I did the right sacroiliac joint the which was identified under fluoroscopy guidance been local infiltration of the skin and subcu interstitial with lidocaine 1% then 22-gauge Quincke Needle advanced slowly under fluoroscopy and placed in the right sacroiliac joint needle placement confirmed with AP and oblique and lateral view and after appropriate needle placement confirmed and after negative aspiration, or heme , then Ropivacaine 0.5% 3 mL, and 40 mg of Kenalog mixed together and injected in the right sacroiliac joint after negative aspiration patient tolerated the procedure well without any complication. Then the right trochanteric bursa injection done and sterile technique, the right trochanteric bursa area prepped with chlorhexidine 3, local infiltration of the skin and subcutissue with lidocaine 1% 2 mL, then 2-gauge Quincke Needle advanced slowly under fluoroscopy and placed in the right trochanteric bursa area, needle placement confirmed with fluoroscopy guidance, and after negative aspiration ropivacaine 0.5% 4 mL and 40 mg of Kenalog injected after negative aspiration, she tolerated the procedure well without any competitions
--- NOTE | 2017-12-15 09:34 | FL ---
Fluoroscopy HISTORY: Pain 8 seconds fluoroscopy time supplied to the referring clinician. 2 intraoperative C-arm images docume nt the procedure. See dictated report from anesthesia.
[2017-12-15 09:37] VITALS: BP 133/61; PULSE 88
== END ==
LOC: ORPAIN 07:11
PROVIDERS: ATTEND Specialist
DX: M46.1 Sacroiliitis, not elsewhere classified (principal); M70.61 Trochanteric bursitis, right hip; Z88.2 Allergy status to sulfonamides; Z91.09 Other allergy status, other than to drugs and biological substances
CPT/HCPCS: 20610; J2250; J3301; J3010; G0260; 27096; 99152

== ENCOUNTER → 2018-01-26 | Outpatient (CLI) | payer MEDICARE, OTHER ==
[2018-01-26 13:20] VITALS: BP 139/91; PULSE 57; RESP 18
--- NOTE | 2018-01-26 13:42 | P.PN ---
Subjective Progress Note Date: 01/26/18 This is a 72-year-old pleasant lady with history of right groin pain with radiation to the right knee. She also feels tingling and numbness in the right lateral aspect of the thigh. Her groin pain has been getting worse lately. This pain started after her right hip replacement about one year ago. Her right leg sometimes gives out on her. She had sacroiliac joint injection on the right side and also lateral cutaneous femoral nerve steroid injection and RFA but didn't did not get good pain relief after these injections. Today, pt denies new-onset weakness, bowel/bladder incontinence, or any other signs or symptoms of cauda equina syndrome. There are no signs of acute intoxication, and no indications of medication diversion or overuse. In addition to above, 13-point review of systems is also negative for chest pain , shortness of breath, changes in vision, changes in hearing, new onset weakness , abdominal pain, diarrhea, extreme fatigue, malaise, fever, skin changes, homicidal or suicidal ideation, or bowel or bladder incontinence. Vital Signs: Reviewed in EMR Gen: AAOx3, NAD HEENT: PERRLA,hearing grossly normal Pulm: resp unlabored,CTA Heart:S1,S2, No Mur Neck: supple, trachea midline Neuro exam of the lower extremities: Straight leg raising test: Negative Neuro exam of the lower extremities showed decreased right knee reflex compared to the left side and absent ankle reflexes bilaterally She has decreased right hip flexion and internal and external rotation to 4 out of 5 Neuro: CN II-XII grossly intact, Imaging: Reviewed in EMR/chart Assessment: Lumbar spondylosis without myelopathy Possible lumbar stenosis at the L1 to 2 or L2 to 3 level due to the patient's location of pain in the right groin area with no response to a locally targeted procedures. Obesity Plan: 1. Explanation: Opioid and psychological risk scores were reviewed. Diagnoses , prognoses, and multiple treatment options including but not limited to physical therapy, interventional therapies, adjuvant medical therapies, narcotic medication therapies, and surgery were discussed with the patient and all questions were answered to the patient's satisfaction. 2. Opioid agreement: Patient is not using opioids 3. Counseling: The patient was counseled extensively on SMOKING CESSATION, BODY MASS INDEX, EXERCISE. Specifically, the patient was instructed regarding the importance of smoking cessation, obesity, and exercise in the context of both chronic pain and overall health. 4. Procedures: Scheduled for lumbar epidural steroid injection under fluoroscopic guidance at the L1-L2 or L2-L3 level in the right paramedian approach 5. Consultations: None 6. Investigations: None 7. Medications: Continue Neurontin 8. Disposition: Return for the above-mentioned procedure 9. Maps were reviewed and were appropriate. PQRS measures: 1-Patient's medications are documented in the chart. 2-Tobacco use is negative, counseling given 3-Patient has had a pneumococcal vaccine. 4-Advanced care planning discussed, patient unable to give 5-Opioid contract signed with the patient. 6-Pain positive, follow-up visit or procedure scheduled 7-Patient's blood pressure measured and documented within normal limits. 8-Patient's weight was measured, and body mass index ABOVE the normal limits, and counseling was done. Patient instructed to follow up with PCP. 9-Patient WAS NOT identified as an unhealthy alcohol user. Objective - Vital Signs Vital signs: Vital Signs Temp Pulse 57 L 01/26/18 13:10 Resp 18 01/26/18 13:10 BP 139/91 01/26/18 13:10 Pulse Ox 99 01/26/18 13:10 Intake & Output 01/25/18 01/26/18 01/26/18 18:59 06:59 18:59 Weight 75.296 kg
== END ==
LOC: PNWHC3 12:27
PROVIDERS: ATTEND Anesthesiology
DX: M47.816 Spondylosis without myelopathy or radiculopathy, lumbar region (principal); E66.9 Obesity, unspecified; Z79.899 Other long term (current) drug therapy; Z96.641 Presence of right artificial hip joint
CPT/HCPCS: 99211

== ENCOUNTER 2018-02-02 10:13 | Day surgery (SDC) | payer MEDICARE, OTHER ==
[2018-01-29 14:43] VITALS: BMI 32.4
[~2018-02-02 10:13] MED LIST changes: -LACTATED RINGERS 1,000 ML IV SCH; +SODIUM CHLORIDE 0.9% 500 ML 500 ML IV SCH
[2018-02-02 11:01] VITALS: RESP 18; TEMP 98.5
[2018-02-02] MEDS ORDERED: LACTATED RINGERS 1,000 ML IV ONE (11:01)
[2018-02-02] MEDS ORDERED: LIDOCAINE 1% 20 ML VIAL (10MG/ML) FOR IV START INTRADERMA ONE (11:01)
[2018-02-02 11:10] LABS: Glucose,Whole Blood 83 mg/dL (75-99)
--- NOTE | 2018-02-02 11:55 | P.PCN ---
Date of Procedure: 02/02/18 Procedure(s) Performed: PREOPERATIVE DIAGNOSIS: 1- Lumbar Degenerative Disc Diseases 2-Lumbar spondylosis with Facet arthropathy without myelopathy. 3-lumbar spinal stenosis. POSTOPERATIVE DIAGNOSIS: 1-Lumber Degenerative Disc Diseases 2-Lumbar spondylosis with Facet arthropathy without myelopathy. 3-lumbar spinal stenosis PROCEDURE 1. Lumbar epidural steroid injection under fluoroscopic guidance at the L2-3 level.. 2. Lumbar epidurogram. ANESTHESIA: Local with 1% lidocaine 3 ml and , moderate sedation with intravenous Versed 1 mg ,and fentanyle 50 Mcg EBL: Minimal PROCEDURE INDICATION: The patient with low back pain and radiculitis symptoms unresponsive to conservative treatment. Fluoroscopy was used to optimize visualization of the needle placement and to maximize safety. PROCEDURE DESCRIPTION / TECHNIQUE: The patient was seen and identified in the preoperative area. Risks, benefits , complications including but not limited to infections ,bleeding ,allergic reaction to the medications ,nerve damage and not complete pain releife , and alternatives were discussed with the patient. The patient agreed to proceed with the procedure and signed the consent. IV was started, and vital signs were stable. Patient was taken to the OR and time out was completed. The patient was placed in the prone position on procedure table and a pillow was placed under the abdomen to reduce lumbar lordosis. The lumbosacral area was prepped and draped in the usual sterile fashion.ere closely monitored during the procedure. Conscious sedation was used during the procedure to decrease patients anxiety. Vital signs was monitered during the entire procedure. Using anterior-posterior fluoroscopy, the L2-3 interlaminar space was identified and the skin over this site was marked and then infiltrated with 1% lidocaine subcutaneously. Subsequently, a 20-gauge Tuohy epidural needle was inserted and advanced toward the epidural space using the ``Loss of resistance technique and guided by AP and lateral fluoroscopy. The correct needle position in the epidural space was verified with the injection of 2 mL of the water soluble contrast dye Isovue 200 contrast and observing an excellent epidurogram with the epidural spread of the dye, after negative aspiration for blood and CSF and in the absence of paresthesias. Again after negative aspiration, a 6 ml mixture containing 40 mg of Depo-medrol , and 2 ml of preservative free Normal Saline, and 2 ml of preservative free lidocaine 1% solution was injected and a washout of epidurogram was seen. Needle was withdrawn intact, skin was cleansed, and bandages were applied. COMPLICATIONS: None DISPOSITION / PLANS: The patient was placed in a supine position and transferred to the recovery area in a stable condition for observation. There was no evidence of lower extremity motor or sensory deficit after the procedure. Patient was discharged from the recovery room after meeting discharge criteria. Home discharge instructions were given to the patient by the staff. The patient was reexamined prior to discharge. The patient will schedule a follow up in the clinic in 2-4 weeks.
[2018-02-02] MEDS ORDERED: IV FLUID CONTINUATION 650 ML IV ONE (12:08)
[2018-02-02 12:16] VITALS: BP 161/85; PULSE 76
--- NOTE | 2018-02-02 12:41 | FL ---
EXAMINATION TYPE: FL guided pain mgmt statistic DATE OF EXAM: 02/02/2018 HISTORY: Flouroscopy time 13 seconds of fluoroscopy provided. IMPRESSION: 1. Fluoroscopy time.
== END 2018-02-02 12:43 | disposition home or self-care (01) ==
LOC: ORPAIN 10:13
PROVIDERS: ATTEND Specialist
DX: M51.36 Other intervertebral disc degeneration, lumbar region (principal); M47.816 Spondylosis without myelopathy or radiculopathy, lumbar region; M48.061 Spinal stenosis, lumbar region without neurogenic claudication; Z88.2 Allergy status to sulfonamides; Z91.048 Other nonmedicinal substance allergy status
CPT/HCPCS: 62323; J2250; J1030; J3010; Q9966; 99152

== ENCOUNTER → 2018-02-25 | Outpatient (CLI) | payer MEDICARE, OTHER ==
[2018-02-25 12:14] VITALS: BP 146/62; PULSE 67; RESP 16
--- NOTE | 2018-02-25 12:46 | P.PAINPG ---
Subjective Progress Note Date: 02/25/18 Iesha a 71-year-old female who presents today for follow-up. She continues to have right-sided hip and leg pain. She has had this pain ever since she's had right hip surgery. She has trialed multiple injections including epidural steroid injections, genitofemoral nerve injections as well as ablation. She reports she's had pretty good relief from the genitofemoral nerve ablation for a short period of time. She reports epidural steroid injection L2 and 3 was also transiently helpful. She continues to complain of pain is a grabbing and tightness sometime numbness and tingling in her right leg. She is currently using gabapentin 600 mg at nighttime and 300 mg in the day. She is requesting to trial anything else and maybe helpful. She has followed up with her surgeon and they feel that the hip is in good shape and is not coming from the hip joint itself Objective - Vital Signs Vital signs: Vital Signs Temp Pulse 67 02/25/18 12:05 Resp 16 02/25/18 12:05 BP 146/62 02/25/18 12:05 Pulse Ox Intake & Output 02/24/18 02/25/18 02/25/18 18:59 06:59 18:59 Weight 75.296 kg - Exam PHYSICAL EXAM: Constitutional: Awake and alert no distress Cardiovascular exam: Regular rate, no lower extremity edema, palpable pulses bilaterally Respiratory exam: No audible wheezing, no accessory muscle usage Abdominal exam: Soft non tender Muscular skeletal exam: - Cervical spine: Nontender to palpation bilaterally. Range of motion is not limited. Spurling is negative bilateral. Facet loading is negative bilaterally - Lumbar spine: Preserved lumbar lordosis. No changes in skin. Nontender palpation bilateral. Patient has full range of motion in flexion and extension as well as lateral sidebending. Straight leg raise is positive. Facet loading is negative. Nontender over the SI joints. LAURY Negative, Gaenselons negative , SI Joint compression negative. She has decreased pinprick sensation over the right anterior and lateral thigh. There is 4-5 strength with hip flexion in the right side. Neuro exam: Normal sensation bilateral upper and lower extremities. Deep tendon reflexes are 2+ bilaterally. Cebalols's is negative Psychiatric exam: Cooperative, good insight Assessment and Plan Assessment: #1 lumbar radiculopathy #2 genitofemoral nerve entrapment Plan: After long discussion with the patient regarding her pain in her options. She is willing to try anything at this point to see if that'll improve her pain since THE injections and therapies we've offered been transient relief. I discussed with her potentially trying spinal cord stimulation and we will try to get approval from her insurance company to be done in [place] in the [facility]. I discussed with the patient to try it. I will also increase her gabapentin to 600 mg 3 times per day. She denies any makes her dizzy or sleepy at any time. She suffers from insomnia despite using 600 mg at nighttime. She also uses trazodone for sleep. I've given her a prescription for 600 mg gabapentin 3 times a day at this point. We will have our office in [place] give her a call at some point and see if that insurance will cover the proposed spinal cord stimulator trial PQRS Measure Charge Sheet Measure #130: Documentation of Current Meds in Medical Chart: Patient's medications documented in chart Measure #226: Tobacco Use: Screen & Cessation Intervention: Pt screened for tobacco use AND intervention given Measure #111: Pneumonia Vaccination: Pneumococcal vaccine administered or previously received Measure #47: Advance Care Plan: Advance care planning discussed & documented, plan or surrogate given Measure #412: Opioid Treatment Agreement: Documented signed opioid trtmnt agreemnt min once during opioid trtmnt Measure #408: Opioid Therapy Follow-up Evaluation: Patient had f/u eval minimum every 3 months during opioid therapy Measure #317: Preventitive Care & Scrn High Bld Press & F/U: Normal blood pressure, f/u not required Measure #128: Body Mass Index (BMI) Screening & Follow-up: BMI documented within normal parameters Measure #131: Pain Assessment & Follow-up: Pain positive & plan documented Measure #431: Unhealthy Alcohol Use Preventative Care & Scrn: Patient identified as unhealthy alcohol user; counseling given PQRS Narrative: Smoking Status Former smoker Do You Want the Pneumonia No Vaccine AT THIS TIME? Blood Pressure 146/62 Pain Intensity [Right Upper 6 Thigh] Scale Used Numeric (1 - 10) Home Medications: Ambulatory Orders Furosemide [Lasix] 40 mg PO DAILY PRN 01/17/14 Pantoprazole Sodium [Protonix] 40 mg PO BID PRN 01/17/14 traZODone HCL 150 mg PO HS 07/23/16 Levothyroxine Sodium [Synthroid] 100 mcg PO DAILY 07/28/16 Docusate [Colace] 100 mg PO DAILY #30 capsule 07/31/16 Amitriptyline HCl [Elavil] 25 mg PO HS 06/10/17 Gabapentin 600 mg PO HS 06/10/17 Metoprolol Succinate (ER) [Toprol XL] 12.5 mg PO DAILY 08/24/17 Liothyronine Sodium [Cytomel] 5 mcg PO HS 10/15/17 Liothyronine Sodium [Cytomel] 10 mcg PO PC-LUNCH 10/15/17 Ibuprofen [Motrin Ib] 400 mg PO BID PRN 01/29/18 Naproxen 500 mg PO BID PRN 01/29/18 Controlled Substance Measures - Controlled Substance Measures Is patient prescribed a controlled substance at discharge?: No When asked, does pt state using other controlled substances?: No If prescribed controlled substance>3 days was MAPS reviewed?: No If Rx opioid, was Start Talking consent form obtained?: No If opioid is for acute pain is fill amount 7 days or less?: No Was information provided regarding opioid addiction?: No
== END | disposition home or self-care (01) ==
LOC: PNWHC3 11:52
PROVIDERS: ATTEND Hospitalist
DX: M54.16 Radiculopathy, lumbar region (principal); Z87.891 Personal history of nicotine dependence; Z79.899 Other long term (current) drug therapy
CPT/HCPCS: 99211

== ENCOUNTER → 2018-06-07 | Outpatient (CLI) | payer MEDICARE, OTHER ==
--- NOTE | 2018-06-10 13:15 | MR ---
EXAMINATION TYPE: MR lumbar spine wo con DATE OF EXAM: 06/07/2018 1:54 PM COMPARISON: NONE HISTORY: Low back pain Multiplanar, MultiSpin echo imaging of the lumbar spine was performed. L1-L2: Mild disc desiccation is noted. No herniation, protrusion or disc bulging. No canal stenosis is present. Foramina are patent bilaterally. L2-L3: Mild disc desiccation is noted. No herniation, protrusion or disc bulging. No canal stenosis is present. Foramina are patent bilaterally. L3-L4: Mild disc desiccation is noted. No herniation, protrusion or disc bulging. No canal stenosi s is present. Foramina are patent bilaterally. L4-L5: Mild disc desiccation is noted. No herniation, protrusion or disc bulging. No canal stenosis is present. Foramina are patent bilaterally. L5-S1: Mild disc desiccation is noted. No herniation, protrusion or disc bulging. No canal stenosis is present. Foramina are patent bilaterally. Lumbar segments are intact. No paraspinal masses are identified. Conus medullaris has a normal appe arance. IMPRESSION: 1. Mild disc desiccation without significant disc bulge or herniation at this time.
== END | disposition home or self-care (01) ==
LOC: RADMRIMAIN 12:56
PROVIDERS: ATTEND Neurological Surgery
DX: M99.63 Osseous and subluxation stenosis of intervertebral foramina of lumbar region (principal)
CPT/HCPCS: 72148

== ENCOUNTER → 2018-08-27 | Outpatient (CLI) | payer MEDICARE, OTHER ==
[2018-08-27 09:53] LABS: Basophils % (A) 1 %; Eosinophils # (A) 0.1 k/uL (0-0.7); Eosinophils % (A) 2 %; HCT 42.8 % (34.0-46.0); HGB 13.3 gm/dL (11.4-16.0); Lymphocytes # (A) 2.4 k/uL (1.0-4.8); Lymphocytes % (A) 40 %; MCV 87.1 fL (80.0-100.0); Mean Platelet Volume 7.1; Monocytes # (A) 0.4 k/uL (0-1.0); Monocytes % (A) 7 %; Neutrophils # (A) 2.9 k/uL (1.3-7.7); Neutrophils % (A) 49 %; Platelet Count 209 k/uL (150-450); RBC 4.91 m/uL (3.80-5.40); RDW 14.6 % (11.5-15.5)
[2018-08-27 11:09] LABS: Erythrocyte Sedimentation Rate 2 mm/hr (0-20)
--- NOTE | 2018-08-27 11:57 | CT ---
EXAMINATION TYPE: CT hip RT wo con DATE OF EXAM: 08/27/2018 COMPARISON: None. HISTORY: Continued Right hip pain post surgery [address] DLP: 688 mGycm Automated exposure control for dose reduction was used. FINDINGS: Metallic hardware from total right hip arthroplasty is identified and felt satisfactory in position. No suspicious surrounding lucency or osteolysis is present to suggest loosening or infection. Muscle bulk right thigh is felt within normal limits. Anterior scar tissue noted axial image 47. No groin ad enopathy or hernia. No acute fracture or dislocation. Incidental slightly low-lying cecum into right pelvis. IMPRESSION: As above, no obvious finding to account for patient's symptoms of persistent pain
--- NOTE | 2018-08-27 14:28 | NM ---
EXAMINATION TYPE: NM bone scan whole body DATE OF EXAM: 08/27/2018 COMPARISON: CT scan 08/27/2018 HISTORY: Pain right hip Delayed whole-body scanning was performed following the injection of 24.2 mCi Tc 99m MDP. Images acq uired 4.25 hours post injection. FINDINGS: Photopenic defect involving both knees and right hip compatible with previous surgery. There is inten se uptake involving the right acetabulum. Abnormal uptake involving the left foot is suggestive of po st arthritic changes. Faint uptake involving the vertebral column suggestive of degenerative change. IMPRESSION: 1. Findings suggest previous right hip and bilateral knee replacement surgery. Intense area of abnorm al uptake involving the right acetabulum. Intense abnormal uptake could be on the basis of previous s urgery. If there is concern for prostheses loosening or infection triple phase bone scan could be per formed.
== END ==
LOC: RADCTMAIN 08:23
PROVIDERS: ATTEND Orthopaedic Surgery
DX: M25.551 Pain in right hip (principal); R93.7 Abnormal findings on diagnostic imaging of other parts of musculoskeletal system
CPT/HCPCS: 85652; 85025; 86140; 73700; 78306; 36415; A9503

== ENCOUNTER → 2019-03-07 | Outpatient (CLI) | payer MEDICARE, OTHER ==
--- NOTE | 2019-03-07 21:19 | MR ---
EXAMINATION TYPE: MR shoulder RT wo con DATE OF EXAM: 03/07/2019 COMPARISON: None HISTORY: Rt shoulder pain x 2 mos, no trauma TECHNIQUE: Multiplanar, multisequence imaging of the right shoulder is performed without contrast. FINDINGS: Hypertrophy of the AC joint results in impingement of the supraspinatus tendon and muscle. There is thickening of the distal margin of the anterior fibers of this infraspinatus tendon and diff usely throughout the supraspinatus tendon compatible severe tendinosis. There is a partial through th ickness tears of the anterior fibers of the supraspinatus measuring 7 mm. Subscapularis tendon demonstrates diffuse increased signal and thickening compatible with tendinosis and partial tear. No retraction. Bicipital tendon is well situated the bicipital groove. There is increased fluid surrounding the valerie ps tendon. There is a small glenohumeral joint effusion. Motion artifact limits assessment of the glenohumeral ligaments. Intracapsular portion of the biceps tendon appears to be intact. There is intrasubstance signal noted compatible with tendinosis. There is nonspecific marrow edema involving the superior margin of the humeral head likely reactive. IMPRESSION: 1. Diffuse severe tendinosis distal supraspinatus tendon extending to the insertion with partial thro ugh thickness tear of the anterior fibers measuring 7 mm. No retraction. 2. Diffuse tendinosis of the insertion and distal fibers of the subscapularis. Partial intrasubstance tear with no evidence of through thickness tear or retraction. 3. Small glenohumeral joint effusion. 3. Tendinosis and partial tear anterior fibers insertion infraspinatus tendon with no retraction. #4 bicipital tendinosis.
== END | disposition home or self-care (01) ==
LOC: RADMRIMAIN 20:27
PROVIDERS: ATTEND Orthopaedic Surgery
DX: S46.811A Strain of other muscles, fascia and tendons at shoulder and upper arm level, right arm, initial encounter (principal); M77.9 Enthesopathy, unspecified

== ENCOUNTER → 2019-03-31 | Outpatient (CLI) | payer MEDICARE, OTHER ==
--- NOTE | 2019-03-31 14:40 | CT ---
EXAMINATION TYPE: CT hip RT wo con DATE OF EXAM: 03/31/2019 COMPARISON: 08/27/2018 HISTORY: Rt hip pain CT DLP: 583 mGycm Automated exposure control for dose reduction was used. Unenhanced CT of the right hip was performed in the axial sagittal and coronal planes. Bone and soft tissue window settings are reviewed. FINDINGS: Extensive metallic streak artifact limits evaluation. Right hip prosthesis is noted to be in place. T here is interval placement of fixation screws along the region of the superior acetabulum. No definit e evidence for loosening or. Prosthetic lucency. I do not see evidence for acute fracture or dislocat ion. Muscle mass appears to be appropriate. Soft tissue scar noted in prior surgical intervention. IMPRESSION: As above, no obvious finding to account for patient's symptoms of persistent pain
[2019-03-31 14:41] LABS: Basophils # (A) 0.1 k/uL (0-0.2); Basophils % (A) 1 %; Eosinophils # (A) 0.1 k/uL (0-0.7); Eosinophils % (A) 1 %; HCT 42.8 % (34.0-46.0); HGB 12.8 gm/dL (11.4-16.0); Hypochromasia Slight; Lymphocytes # (A) 1.8 k/uL (1.0-4.8); Lymphocytes % (A) 34 %; MCH 24.9 pg (25.0-35.0); Mean Platelet Volume 7.8; Monocytes # (A) 0.3 k/uL (0-1.0); Monocytes % (A) 6 %; Neutrophils # (A) 2.8 k/uL (1.3-7.7); Neutrophils % (A) 55 %; Platelet Count 208 k/uL (150-450); RBC 5.16 m/uL (3.80-5.40); RDW 15.9 % (11.5-15.5); WBC 5.1 k/uL (3.8-10.6)
[2019-03-31 16:32] LABS: Erythrocyte Sedimentation Rate 3 mm/hr (0-20)
== END | disposition home or self-care (01) ==
LOC: RADCTMAIN 13:49
PROVIDERS: ATTEND Orthopaedic Surgery
DX: T84.038A Mechanical loosening of other internal prosthetic joint, initial encounter (principal); Z96.641 Presence of right artificial hip joint; Z47.1 Aftercare following joint replacement surgery
CPT/HCPCS: 36415; 85025; 85652; 86140

== ENCOUNTER → 2020-05-30 | Outpatient (CLI) | payer MEDICARE ==
--- NOTE | 2020-05-31 03:01 | MR ---
EXAMINATION TYPE: MR hip RT wo con DATE OF EXAM: 05/30/2020 COMPARISON: None HISTORY: RT hip pain and swelling Multiplanar multiecho imaging of the pelvis and right hip was performed without contrast. There is extensive metal artifact at the right acetabulum and proximal femur related to hip surgery. The proximal left femur and acetabulum show small degenerative cyst formation in the medial superior left femoral head. The left acetabulum is intact. The pelvic ring that is visualized appears intact. There is no evidence of a pelvic mass. Bladder distends smoothly. Sacroiliac joints appear intact. IMPRESSION: Exam is nondiagnostic for evaluation for abnormality of the right hip prosthesis due to metal artifac t. No significant abnormality seen of the remainder of the pelvis and left hip.
== END | disposition home or self-care (01) ==
LOC: RADMRIMAIN 11:14
PROVIDERS: ATTEND Orthopaedic Surgery
DX: Z47.1 Aftercare following joint replacement surgery (principal); M16.11 Unilateral primary osteoarthritis, right hip; Z96.641 Presence of right artificial hip joint

== ENCOUNTER → 2022-02-04 | Outpatient (CLI) | payer MEDICARE ==
--- NOTE | 2022-02-05 09:16 | MR ---
EXAMINATION TYPE: MR hip RT wo con DATE OF EXAM: 02/04/2022 COMPARISON: MRI 05/30/2020. Prior CTs 03/31/2019 and 08/27/2018 HISTORY: 76-year-old female Mechanical loosening right hip TECHNIQUE: Multiplanar, multisequence images of the right hip were obtained without IV contrast. FINDINGS: Despite the utilization of Metal Artifact Reduction Sequences protocol, there is excessive metal hard lamar artifact related to the patient's right hip: Plasty. Unable to assess the bone prosthesis interf rashel or immediately surrounding bony or soft tissue structures. There is edematous change along the lateral thigh subcutaneous tissues with a somewhat thick walled 9 .7 cm long by 3.7 cm AP by 2.0 cm wide fluid collection directly overlying the superficial fascia lat eral to the right hip. Asymmetric mild atrophy of the right gluteus medius and minimus muscles, likely relatively similar. There is progressive degenerative change at the left hip with axial joint space narrowing and reactiv e subchondral marrow signal change especially along the axial aspect of the left femoral head. IMPRESSION: 1. Assessment of the right hip total arthroplasty itself is nondiagnostic despite the utilization of MARS protocol to decrease metal artifact. Correlate with radiographic and/or CT findings. 2. There is lateral right thigh subcutaneous soft tissue edema and a slightly thick-walled 9.7 x 3.7 x 2.0 cm fluid collection directly overlying the superficial fascia, suspected chronic seroma or mague sandy. This is new from the 05/30/2020 MRI. 3. Mild atrophy of the right gluteus medius and minimus muscles appears relatively similar. 4. Compared to 05/30/2020, progressive OA within the left hip with axial joint space narrowing and sharlene ctive subchondral bony signal change.
== END | disposition home or self-care (01) ==
LOC: RADMRIMAIN 15:32
PROVIDERS: ATTEND Orthopaedic Surgery
DX: T84.038A Mechanical loosening of other internal prosthetic joint, initial encounter (principal); M62.551 Muscle wasting and atrophy, not elsewhere classified, right thigh; M16.12 Unilateral primary osteoarthritis, left hip; R60.0 Localized edema; Z96.641 Presence of right artificial hip joint

== ENCOUNTER 2022-10-04 18:16 | Emergency (ER) | payer MEDICARE ==
[2022-10-04 18:22] VITALS: RESP 18
[2022-10-04 19:28] LABS: Basophils % (A) 0 %; Eosinophils # (A) 0.1 k/uL (0-0.7); Eosinophils % (A) 1 %; HCT 40.8 % (34.0-46.0); HGB 12.9 gm/dL (11.4-16.0); Hypochromasia Slight; Lymphocytes # (A) 1.6 k/uL (1.0-4.8); Lymphocytes % (A) 24 %; MCH 27.9 pg (25.0-35.0); MCHC 31.5 g/dL (31.0-37.0); MCV 88.4 fL (80.0-100.0); Mean Platelet Volume 8.3; Monocytes # (A) 0.5 k/uL (0-1.0); Monocytes % (A) 7 %; Neutrophils # (A) 4.7 k/uL (1.3-7.7); Neutrophils % (A) 67 %; Platelet Count 160 k/uL (150-450); RBC 4.62 m/uL (3.80-5.40); RDW 14.4 % (11.5-15.5)
[2022-10-04 19:49] LABS: ALT 10 U/L (4-34); AST 23 U/L (14-36); African American GFR (CKD) 74 (>60 ml/min/1.73 sqM); Albumin 3.9 g/dL (3.5-5.0); Alkaline Phosphatase 50 U/L (38-126); Anion Gap 9 mmol/L; Blood Urea Nitrogen 16 mg/dL (7-17); Calcium 8.9 mg/dL (8.4-10.2); Carbon Dioxide 23 mmol/L (22-30); Chloride 106 mmol/L (98-107); Glucose 65 mg/dL (74-99); Non-African American GFR(CKD) 64 (>60 ml/min/1.73 sqM); Potassium 4.7 mmol/L (3.5-5.1); Sodium 138 mmol/L (137-145); Total Bilirubin 1.1 mg/dL (0.2-1.3); Total Protein 6.8 g/dL (6.3-8.2)
--- NOTE | 2022-10-04 20:29 | CT ---
EXAMINATION TYPE: CT ChestAbdPelvis w con CT DLP: 1099 mGycm, Automated exposure control for dose reduction was used. DATE OF EXAM: 10/04/2022 8:11 PM COMPARISON: None. CLINICAL INDICATION:Female, 77 years old with history of fall - rib pain, lumbar pain, urinary incont inence; PHH, fall - rt side rib pain, lumbar pain, urinary incontinence. Technique: Multiple axial images of the chest, abdomen, and pelvis were obtained. Two-dimensional cor onal and sagittal reconstructions were obtained. Contrast used:100 ml mL of Isovue 300 with IV Contrast, Oral contrast used: without Oral Contrast Findings: CHEST: LUNGS/ PLEURA: The lung parenchyma appears unremarkable. AIRWAY: Patent and unremarkable. HEART: Heart is mildly enlarged for size. Coronary artery calcifications. MEDIASTINUM: No gross evidence of adenopathy. VASCULATURE: No aortic aneurysm. MUSCULOSKELETAL: T11 vertebral body compression deformity with 25% height loss. There is approximatel y 3 mm retropulsion. No evidence for significant spinal canal or neural foraminal stenosis. SOFT TISSUES/LYMPH NODES: Unremarkable. LOWER NECK: No significant findings. ABDOMEN: ABDOMEN LIVER: Unremarkable GALLBLADDER AND BILE DUCTS: Gallbladder is surgically absent with mild intrahepatic and extra hepatic biliary dilatation likely physiologic and a postcholecystectomy change. No evidence of choledocholit hiasis. PANCREAS: Unremarkable. SPLEEN: Unremarkable. ADRENAL GLANDS: Unremarkable. KIDNEYS AND URETERS: No evidence of hydronephrosis or renal calculus. The ureters are unremarkable. PELVIS BLADDER: Unremarkable REPRODUCTIVE: Unremarkable. ABDOMEN & PELVIS STOMACH AND BOWEL: No evidence of bowel obstruction. Large amount stool throughout the colon. Small h iatal hernia. PERITONEUM: No evidence of pneumoperitoneum or free fluid. VASCULATURE: No evidence of aortic aneurysm. MUSCULOSKELETAL: No acute osseous abnormalities LYMPH NODES: No gross evidence for lymphadenopathy. SOFT TISSUE/ABDOMINAL WALL: Unremarkable IMPRESSION: 1. T11 vertebral body compression deformity with 25% height loss. There is approximately 3 mm retrop ulsion. No evidence for significant spinal canal or neural foraminal stenosis. 2. No rib fractures visualized.
[2022-10-04] MEDS ORDERED: MORPHINE SULFATE 4 MG/ML SYRINGE IVP STA (21:03)
--- NOTE | 2022-10-04 21:48 | ED ---
Fall HPI - General Chief Complaint: Fall Stated Complaint: Fall/rib cage pain Time Seen by Provider: 10/04/22 18:33 Source: patient Mode of arrival: ambulatory - History of Present Illness Initial Comments: Iesha is a pleasant 77yo F who presents to the ER via private vehicle for evaluation of back pain. She reports on she was visiting her grandchild who is only 2 years old. When she went to leave the house the 2-year-old ran towards her and head butted her in the stomach causing her to fall. Patient reports she twisted and fell backwards. She landed on her back. Since that time she had pain in her mid back which is worse with any movement specifically twisting. Pain also in her right ribs. No numbness or tingling in the legs. No bowel or bladder incontinence. No weakness. No other injuries. - Related Data Home Medications Medication Instructions Recorded Confirmed Furosemide [Lasix] 40 mg PO DAILY PRN 01/17/14 02/25/18 Pantoprazole Sodium [Protonix] 40 mg PO BID PRN 01/17/14 02/25/18 traZODone HCL 150 mg PO HS 07/23/16 02/25/18 Levothyroxine Sodium [Synthroid] 100 mcg PO DAILY 07/28/16 02/25/18 Amitriptyline HCl [Elavil] 25 mg PO HS 06/10/17 02/25/18 Gabapentin 600 mg PO TID 06/10/17 02/25/18 Metoprolol Succinate (ER) [Toprol 12.5 mg PO DAILY 08/24/17 02/25/18 XL] Liothyronine Sodium [Cytomel] 5 mcg PO HS 10/15/17 02/25/18 Liothyronine Sodium [Cytomel] 10 mcg PO PC-LUNCH 10/15/17 02/25/18 Ibuprofen [Motrin Ib] 400 mg PO BID PRN 01/29/18 02/25/18 Naproxen 500 mg PO BID PRN 01/29/18 02/25/18 Previous Rx's Medication Instructions Recorded Docusate [Colace] 100 mg PO DAILY #30 capsule 07/31/16 HYDROcodone/APAP 5-325MG [[place] 1 tab PO Q6HR PRN 3 Days #12 tab 10/04/22 5-325] Allergies Allergy/AdvReac Type Severity Reaction Status Date / Time adhesive Allergy Rash/Hives Verified 02/25/18 12:02 adhesive tape Allergy Rash/Hives Verified 02/25/18 12:02 rofecoxib [From Vioxx] Allergy Rash/Hives Verified 02/25/18 12:02 Sulfa (Sulfonamide Allergy dizziness Verified 02/25/18 12:02 Antibiotics) propoxyphene HCl AdvReac Nausea & Verified 02/25/18 12:02 [From Darvon] Vomiting Review of Systems ROS Statement: Those systems with pertinent positive or pertinent negative responses have been documented in the HPI. ROS Other: All systems not noted in ROS Statement are negative. Past Medical History Past Medical History: Fibromyalgia, GERD/Reflux, Musculoskeletal Disorder, Osteoarthritis (OA), Sleep Apnea/CPAP/BIPAP, Thyroid Disorder Additional Past Medical History / Comment(s): FREQUENT LOWER EXTREMITY EDEMA; HIATAL HERNIA; DIVERTICULITIS, no cpap at this time, IBS; HYPOGLYCEMIA. History of Any Multi-Drug Resistant Organisms: None Reported Past Surgical History: Cholecystectomy, Hysterectomy, Joint Replacement, Orthopedic Surgery Additional Past Surgical History / Comment(s): ZENAIDA HAND SX, ZENAIDA INDEX FINGER WITH JEREMIAH, LEFT BIG TOE METAL, ZENAIDA CATARACTS, Laser procedure right eye, RIGHT HIP replacement, BILAT total knee replacements, COLONOSCOPY, STEROID SHOTS BILAT HIPS. Past Anesthesia/Blood Transfusion Reactions: Motion Sickness, Postoperative Nausea & Vomiting (PONV) Additional Past Anesthesia/Blood Transfusion Reaction / Comment(s): No hx blood transfusion. Past Psychological History: Depression Smoking Status: Former smoker Past Alcohol Use History: None Reported Past Drug Use History: None Reported - Past Family History Father Family Medical History: Cancer Additional Family Medical History / Comment(s): LYMPHOMA, COLON CANCER. Mother Family Medical History: Cancer Additional Family Medical History / Comment(s): SKIN CANCER. General Exam - General Exam Comments Initial Comments: Physical Exam GENERAL: Patient is well-developed and well-nourished. Patient is nontoxic and well-hydrated and is in no distress. HENT: Normocephalic, Atraumatic. EYES: PERRL, EOMI PULMONARY: Unlabored respirations. CARDIOVASCULAR: RRR Warm and well perfused extremities ABDOMEN: Non-distended SKIN: No rashes or bruising : Deferred NEUROLOGIC: Alert and oriented Normal speech Walks with cane at baseline, gait is normal for her MUSCULOSKELETAL: Moving all extremities with no apparent injury Tenderness to palpation of the right ribs and lower thoracic spine PSYCHIATRIC: No SI/HI Limitations: no limitations Course Vital Signs 10/04/22 10/04/22 10/04/22 18:18 21:22 22:43 Temperature 98.5 F 97.9 F Pulse Rate 50 L 46 L 54 L Respiratory 18 18 18 Rate Blood Pressure 158/80 185/57 195/66 O2 Sat by Pulse 95 99 97 Oximetry Medical Decision Making - Medical Decision Making Was pt. sent in by a medical professional or institution (, PA, BRAKE OPERATOR HELPER, urgent care, hospital, or prison...) When possible be specific @ -No Did you speak to anyone other than the patient for history (EMS, parent, family, police, friend...)? What history was obtained from this source @ -No Did you review nursing and triage notes (agree or disagree)? Why? @ -I reviewed and agree with nursing and triage notes Were old charts reviewed (outside hosp., previous admission, EMS record, old EKG, old radiological studies, urgent care reports/EKG's, prison records)? Report findings @ -No old charts were reviewed Differential Diagnosis (chest pain, altered mental status, abdominal pain women, abdominal pain men, vaginal bleeding, weakness, fever, dyspnea, syncope, headache, dizziness, GI bleed, back pain, seizure, CVA, palpatations, mental health, musculoskeletal)? @ -Differential Back Pain: Strain, zoster, cauda equina syndrome, epidural abscess, vertebral osteomyeliti s, discitis, fracture, subluxation, disc herniation, DJD, spinal stenosis, dissection, AAA, pancreatitis, peptic ulcer disease, pyelonephritis, kidney stone, this is not meant to be an all-inclusive list. EKG interpreted by me (3pts min.). @ -As above X-rays interpreted by me (1pt min.). @ -None done CT interpreted by me (1pt min.). @ -None done U/S interpreted by me (1pt. min.). @ -None done What testing was considered but not performed or refused? (CT, X-rays, U/S, labs)? Why? @ -None What meds were considered but not given or refused? Why? @ -None Did you discuss the management of the patient with other professionals (professionals i.e. , PA, BRAKE OPERATOR HELPER, lab, RT, psych nurse, social worker assistant, ag equipment field service technician, teacher, administrative hearing officer, bottle caser)? Give summary @ -No Was smoking cessation discussed for >3mins.? @ -No Was critical care preformed (if so, how long)? @ -No Were there social determinants of health that impacted care today? How? (Homelessness, low income, unemployed, alcoholism, drug addiction, transportation, low edu. Level, literacy, decrease access to med. care, halfway, rehab)? @ -No Was there de-escalation of care discussed even if they declined (Discuss DNR or withdrawal of care, Hospice)? DNR status @ -No What co-morbidities impacted this encounter? (DM, HTN, Smoking, COPD, CAD, Cancer, CVA, ARF, Chemo, Hep., AIDS, mental health diagnosis, sleep apnea, morbid obesity)? @ -None Was patient admitted / discharged? Hospital course, mention meds given and route, prescriptions, significant lab abnormalities, going to OR and other pertinent info. @ -Patient was seen and evaluated considering the patient's pain in the ribs and back felt CT would be more thorough imaging then multiple sets of x-rays. Patient was agreeable to this CT was obtained and results with evidence of a T11 compression fracture with 25% height loss and 3 mm of retropulsion. These results were discussed with Dr. Sterling orthopedic surgeon information systems security developer who recommends discharge home for pain management and follow-up in office for brace. Undiagnosed new problem with uncertain prognosis? @ -No Drug Therapy requiring intensive monitoring for toxicity (Heparin, Nitro, Insulin, Cardizem)? @ -No Were any procedures done? @ -No Diagnosis/symptom? @ T11 compression fracture Acute, or Chronic, or Acute on Chronic? @ -Acute Uncomplicated (without systemic symptoms) or Complicated (systemic symptoms)? @ -default Side effects of treatment? @ -No Exacerbation, Progression, or Severe Exacerbation? @ -No Poses a threat to life or bodily function? How? (Chest pain, [place], [place], pneumonia, PE, COPD, DKA, ARF, appy, cholecystitis, CVA, Diverticulitis, Homicidal, Suicidal, threat to staff... and all critical care pts) @ -No - Lab Data Result diagrams: 10/04/22 19:08 10/04/22 19:08 Lab Results 10/04/22 10/04/22 Range/Units 19:08 19:08 WBC 7.0 (3.8-10.6) k/uL RBC 4.62 (3.80-5.40) m/uL Hgb 12.9 (11.4-16.0) gm/dL Hct 40.8 (34.0-46.0) % MCV 88.4 (80.0-100.0) fL MCH 27.9 (25.0-35.0) pg MCHC 31.5 (31.0-37.0) g/dL RDW 14.4 (11.5-15.5) % Plt Count 160 (150-450) k/uL MPV 8.3 Neutrophils % 67 % Lymphocytes % 24 % Monocytes % 7 % Eosinophils % 1 % Basophils % 0 % Neutrophils # 4.7 (1.3-7.7) k/uL Lymphocytes # 1.6 (1.0-4.8) k/uL Monocytes # 0.5 (0-1.0) k/uL Eosinophils # 0.1 (0-0.7) k/uL Basophils # 0.0 (0-0.2) k/uL Hypochromasia Slight Sodium 138 (137-145) mmol/L Potassium 4.7 (3.5-5.1) mmol/L Chloride 106 (98-107) mmol/L Carbon Dioxide 23 (22-30) mmol/L Anion Gap 9 mmol/L BUN 16 (7-17) mg/dL Creatinine 0.87 (0.52-1.04) mg/dL Est GFR (CKD-EPI)AfAm 74 (>60 ml/min/1.73 sqM) Est GFR (CKD-EPI)NonAf 64 (>60 ml/min/1.73 sqM) Glucose 65 L (74-99) mg/dL Calcium 8.9 (8.4-10.2) mg/dL Total Bilirubin 1.1 (0.2-1.3) mg/dL AST 23 (14-36) U/L ALT 10 (4-34) U/L Alkaline Phosphatase 50 (38-126) U/L Total Protein 6.8 (6.3-8.2) g/dL Albumin 3.9 (3.5-5.0) g/dL Disposition Clinical Impression: Fall, Compression fracture of T11 vertebra Disposition: HOME SELF-CARE Condition: Stable Instructions (If sedation given, give patient instructions): Vertebral Compression Fracture (ED) Prescriptions: HYDROcodone/APAP 5-325MG [[place] 5-325] 1 tab PO Q6HR PRN 3 Days #12 tab PRN Reason: Pain Is patient prescribed a controlled substance at d/c from ED?: No Referrals: Rin Montanez DO [Primary Care Provider] - 1-2 days Jorge Sterling MD [STAFF PHYSICIAN] - 1-2 days
[2022-10-04 22:48] VITALS: BP 195/66; PULSE 54; TEMP 97.9
== END 2022-10-04 22:49 | disposition home or self-care (01) ==
LOC: EC 18:16
DX: S22.080A Wedge compression fracture of T11-T12 vertebra, initial encounter for closed fracture (principal); F32.A Depression, unspecified; G47.30 Sleep apnea, unspecified; K21.9 Gastro-esophageal reflux disease without esophagitis; M19.90 Unspecified osteoarthritis, unspecified site; E07.9 Disorder of thyroid, unspecified; Z79.890 Hormone replacement therapy; Z79.899 Other long term (current) drug therapy; Z87.891 Personal history of nicotine dependence; Z88.2 Allergy status to sulfonamides; Z88.8 Allergy status to other drugs, medicaments and biological substances; W18.30XA Fall on same level, unspecified, initial encounter
CPT/HCPCS: 36415; 80053; 85025; 71260; 74177; 99284; 96374; J2270; Q9967

== ENCOUNTER → 2022-11-05 | Outpatient (CLI) | payer MEDICARE ==
--- NOTE | 2022-11-05 20:07 | XR ---
EXAMINATION TYPE: XR thoracic spine 2V DATE OF EXAM: 11/05/2022 4:13 PM CLINICAL INDICATION:Female, 77 years old with history of M54.6 PAIN IN THORACIC SPINE; [facility] COMPARISON: 10/04/2022 TECHNIQUE: 2 views of the thoracic spine in Frontal and lateral projections. FINDINGS: There is interval progression of T11 vertebral body height loss compared to prior CT. No fractures vi sualized. There is multilevel degeneration changes with osteophyte formation disc space narrowing and facet joint arthropathy present. IMPRESSION: Progression of the wedging of the mid thoracic vertebrae of T11 compared to 10/04/2022 CT. No new comp ression fracture visualized.
== END | disposition home or self-care (01) ==
LOC: RADXRMAIN 15:55
PROVIDERS: ATTEND Neurological Surgery
DX: M54.6 Pain in thoracic spine (principal)
CPT/HCPCS: 72070